=== PATIENT | female | born 1975 | race Caucasian/White ===

== ENCOUNTER 2019-12-22 10:36 | Outpatient (REF) | payer MEDICAID, SELFPAY ==
[2019-12-22 20:37] LABS: Calculated LDL 123 mg/dL (<100); Cholesterol 224 mg/dL (<200); HDL Cholesterol 50 mg/dL (40-60); Triglyceride 255 mg/dL (<150)
== END 2019-12-22 10:56 ==
LOC: NCHCN 10:36
PROVIDERS: PCP Nurse Practitioner Family; Visit Provider Nurse Practitioner Family
DX: R73.03 Prediabetes (principal); E06.3 Autoimmune thyroiditis; I10 Essential (primary) hypertension
CPT/HCPCS: 80061; 83036; 84443

== ENCOUNTER 2020-01-16 13:45 | Outpatient (REF) | payer MEDICAID, SELFPAY ==
--- NOTE | 2020-01-16 11:15 | PAPFT_PTH ---
PATIENT: Diane Wilson LOC: [facility] U#:[id number] AGE/SX: 44/F ROOM: RE01/16/[address]: Darline Salazar : 1975 BED: DIS: 01/16/2020 SPEC #: [id number] RECD: 01/17/20 12:36 STATUS: ERNIE RERain #: [id number] JHOANA: 01/16/20 11:[address]: Darline Salazar DEPT: [facility] Cytology RECD BY: Trinity Hudson Tissues: 1 - CX/ENDOCX FOR PAP SMEARS Procedures: PAP THIN PREP/UVM Screening Comments: [id number]
== END 2020-01-16 14:05 ==
LOC: NCHCN 13:45
PROVIDERS: PCP Nurse Practitioner Family; Visit Provider Nurse Practitioner Family
DX: Z12.4 Encounter for screening for malignant neoplasm of cervix (principal)
CPT/HCPCS: 88142

== ENCOUNTER 2020-01-18 11:21 | Outpatient (CLI) | payer MEDICAID, SELFPAY ==
--- NOTE | 2020-01-18 10:45 | DI.RAD_ITS ---
EXAM: XR KNEE LT 2V AP,LAT CLINICAL HISTORY: knee pain. TECHNIQUE: 2D digital imaging was performed. COMPARISON: No exams were available for comparison FINDINGS: BONES: No acute fracture is present. No bony destructive lesion is seen. JOINTS: The knee is normally aligned. No joint effusion is seen. There is mild narrowing of the medi al femoral tibial joint space and mild to moderate periarticular spurring. There is mild spurring at the articular aspect of the patella. SOFT TISSUE: Normal. IMPRESSION: [id number] degenerative changes of the medial femoral tibial joint. DATA REPOSITORY: RADIATION DOSE DELIVERED:
== END 2020-01-18 11:41 ==
PROVIDERS: PCP Nurse Practitioner Family; Referring Provider Nurse Practitioner Family; Visit Provider Physician Assistant
DX: M25.562 Pain in left knee (principal); M17.12 Unilateral primary osteoarthritis, left knee
CPT/HCPCS: 73560

== ENCOUNTER 2020-02-08 01:20 | Outpatient (CLI) | payer MEDICAID, SELFPAY ==
--- NOTE | 2020-02-08 10:18 | DI.RAD_ITS ---
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 TECHNIQUE: 2D digital imaging was performed. COMPARISON: No exams were available for comparison FINDINGS: A plantar calcaneal spur is seen. There are mild degenerative changes of the talonavicular joint and tarsal metatarsal joints. MTP joints are unremarkable. There are no bony erosions. IMPRESSION: Heel spur and mild degenerative changes. DATA REPOSITORY: RADIATION DOSE DELIVERED:
== END 2020-02-08 01:40 ==
PROVIDERS: PCP Nurse Practitioner Family; Visit Provider Podiatrist Foot & Ankle Surgery
DX: M77.31 Calcaneal spur, right foot (principal); M19.071 Primary osteoarthritis, right ankle and foot
CPT/HCPCS: 73630

== ENCOUNTER 2020-02-16 14:00 | Outpatient (REF) | payer MEDICAID, SELFPAY ==
[2020-02-16 20:23] LABS: TSH 0.66 uIU/mL (0.36-3.74)
[2020-02-16 20:34] LABS: Vitamin D 25 Total 26.8 ng/ml (30-100)
== END 2020-02-16 14:20 ==
LOC: NCHCN 14:00
PROVIDERS: PCP Nurse Practitioner Family; Visit Provider Nurse Practitioner Family
DX: E55.9 Vitamin D deficiency, unspecified (principal); E03.9 Hypothyroidism, unspecified
CPT/HCPCS: 82306; 84443

== ENCOUNTER 2020-05-14 14:18 | Outpatient (REF) | payer MEDICAID, SELFPAY ==
[2020-05-14 20:13] LABS: ESR 71 mm/hr (0-20)
== END 2020-05-14 14:38 ==
LOC: NCHCN 14:18
PROVIDERS: PCP Nurse Practitioner Family; Visit Provider Nurse Practitioner Family
DX: G89.29 Other chronic pain (principal)
CPT/HCPCS: 85652; 86140

== ENCOUNTER 2020-06-15 14:16 | Outpatient (REF) | payer MEDICAID, SELFPAY ==
[2020-06-15 20:05] LABS: HCT 46.4 % (36.0-46.0); HGB 14.5 g/dL (11.2-15.7); MCH 28.2 pg (27.0-33.0); MCHC 31.3 % (32.0-36.0); MCV 90.1 fL (80-95); MPV 10.9 fL (8.0-11.0); Platelet Count 407 10^3/uL (130-400); RBC 5.15 10^6/uL (3.93-5.22); RDW 14.6 % (11.7-14.6); RDW-SD 48.7 fL; WBC 13.48 10^3/uL (4.4-10.8)
[2020-06-15 20:25] LABS: Anion Gap 9.6 mmol/L (3-11); BUN 20 mg/dL (7-18); CO2 27.4 mmol/L (21.0-32.0); CREATININE 0.81 mg/dL (0.55-1.02); Calcium 9.8 mg/dL (8.5-10.1); Chloride 99 mmol/L (98-107); Glucose 135 mg/dL (74-106); Potassium 5.2 mmol/L (3.5-5.1); Sodium 136 mmol/L (136-145)
[2020-06-21 14:59] LABS: ANA Interpretation 0.2 U (Negative)
[2020-06-21 15:00] LABS: Anaplasma phagocytophilum Negative (Negative); Babesia divergens/MO-1 Negative (Negative); Babesia duncani Negative (Negative); Babesia microti Negative (Negative); Ehrlichia chaffeensis Negative (Negative); Ehrlichia ewingii/canis Negative (Negative); Ehrlichia muris eauclairensis Negative (Negative); Lyme Ab w Rflx to Lyme Confirm Negative (Negative); Rheumatoid Factor <15 IU/mL (<15)
[2020-06-21 15:01] LABS: B. miyamotoi PCR Negative (Negative)
== END 2020-06-15 14:36 ==
LOC: NCHCN 14:16
PROVIDERS: PCP Nurse Practitioner Family; Visit Provider Nurse Practitioner Family
DX: R53.83 Other fatigue (principal); G89.29 Other chronic pain
CPT/HCPCS: 80048; 85027; 87798; 86038; 86431; 86618

== ENCOUNTER 2021-06-11 00:49 | Outpatient (CLI) | payer MEDICAID, SELFPAY ==
--- NOTE | 2021-06-11 08:27 | DI.MAMMO_ITS ---
Exam(s) MAMMO SCREENING EXAM: MAMMO SCREENING CLINICAL HISTORY: SCREENING, FORMERLY [facility], 1928–1983,Z00.00 TECHNIQUE: Mammograms were interpreted according to the usual protocol including computer analysis w [employer] CAD system, tomosynthesis and C-view imaging. COMPARISON: 2018 and 2019 from [facility] [place] [facility] in [place], [place] FINDINGS: The breasts are composed of mainly fatty density , Breast Density category A. No suspicious masses or suspicious microcalcifications are seen. No skin thickening or abnormal axillary lymph nodes are seen. There has been no significant change from prior exams. IMPRESSION: BI-RADS Category 1, Negative mammogram Yearly screening mammography is recommended. Breast Density - Category A, fatty density. A negative radiographic report should not delay biopsy if a dominant or clinically suspicious mass is present. Up to ten percent of cancers are not identified on mammography. A negative report may reinforce clinical impression. Adenosis and dense breasts may obscure an underlying neoplasm. False positive reports average 6 to 10%. Patient will receive a letter notifying them of these results.
== END 2021-06-11 01:09 ==
PROVIDERS: PCP Nurse Practitioner Family; Visit Provider Nurse Practitioner Family
DX: Z12.31 Encounter for screening mammogram for malignant neoplasm of breast (principal)
CPT/HCPCS: 77063; 77067

== ENCOUNTER 2021-08-20 15:24 | Outpatient (REF) | payer MEDICAID, SELFPAY ==
[2021-08-20 14:17] LABS: HCT 41.9 % (36.0-46.0); HGB 13.2 g/dL (11.2-15.7); MCH 28.7 pg (27.0-33.0); MCHC 31.5 % (32.0-36.0); MCV 91.1 fL (80-95); MPV 10.6 fL (8.0-11.0); Platelet Count 374 10^3/uL (130-400); RDW 14.4 % (11.7-14.6); RDW-SD 48.2 fL; WBC 7.42 10^3/uL (4.4-10.8)
[2021-08-20 14:20] LABS: ESR 38 mm/hr (0-20)
[2021-08-20 14:37] LABS: ALT 44 U/L (14-59); AST 26 U/L (15-37); Albumin 3.6 g/dL (3.4-5.0); Alkaline Phosphatase 142 U/L (46-116); Anion Gap 7.9 mmol/L (3-11); BUN 14 mg/dL (7-18); Bilirubin, Total 0.2 mg/dL (0.2-1.0); C-Reactive Protein 1.56 mg/dL (0.0-0.3); CO2 29.1 mmol/L (21.0-32.0); CREATININE 0.8 mg/dL (0.55-1.02); Calcium 9.3 mg/dL (8.5-10.1); Chloride 102 mmol/L (98-107); Glucose 114 mg/dL (74-106); Potassium 4.3 mmol/L (3.5-5.1); Sodium 139 mmol/L (136-145); TSH (W/Ref FT4) 0.76 uIU/mL (0.36-3.74); Total Protein 7.9 g/dL (6.4-8.2)
[2021-08-20 15:04] LABS: Ferritin 51 ng/mL (8-252)
[2021-08-21 11:03] LABS: Lyme Ab w Rflx to Lyme Confirm Negative (Negative)
[2021-08-21 14:36] LABS: ANA Interpretation Negative (Negative)
[2021-08-23 01:17] LABS: Anaplasma phagocytophilum Negative (Negative); B. miyamotoi PCR Negative (Negative); Babesia divergens/MO-1 Negative (Negative); Babesia duncani Negative (Negative); Babesia microti Negative (Negative); Ehrlichia chaffeensis Negative (Negative); Ehrlichia ewingii/canis Negative (Negative); Ehrlichia muris eauclairensis Negative (Negative)
== END 2021-08-20 15:25 | disposition home or self-care (01) ==
LOC: NCHCN 15:24
PROVIDERS: PCP Nurse Practitioner Family; Visit Provider Family Medicine
DX: I10 Essential (primary) hypertension (principal); G47.00 Insomnia, unspecified; R79.82 Elevated C-reactive protein (CRP); R70.0 Elevated erythrocyte sedimentation rate; G25.81 Restless legs syndrome
CPT/HCPCS: 80053; 85027; 85652; 87798; 82728; 84443; 86038; 86140; 86618

== ENCOUNTER 2021-12-14 15:56 | Emergency (ER) | payer MEDICAID, SELFPAY ==
[2021-12-14 16:07] VITALS: BP 139/93; PULSE 124; RESP 18; TEMP 36.3; O2SAT 96
--- NOTE | 2021-12-14 17:02 | W.ED.GENAD ---
Discharge Plan Disposition Patient Disposition: HOME Condition: Stable Discharge Details Clinical Impression: COVID-19 Primary Care Provider: Darline Salazar ED Provider: Jenna Moscoso Home Meds and New Rx's Prescriptions: New Paxlovid (EUA) 150 mg x 2- 100 mg tablet See Rx Instructions .ROUTE .COMPLEX Qty: 30 0RF Rx Instructions: take TWO 150 mg tablets of nirmatrelvir with ONE 100 mg tablet of ritonavir twice daily for 5 days Paxlovid (EUA) 150 mg x 2- 100 mg tablet See Rx Instructions .ROUTE .COMPLEX Qty: 30 0RF Rx Instructions: take TWO 150 mg tablets of nirmatrelvir with ONE 100 mg tablet of ritonavir twice daily for 5 days No Action hydrocodone-acetaminophen [Vicodin HP] 10-300 mg tablet 1 tab PO Q6H PRN meloxicam 15 mg tablet 15 mg PO DAILY cyclobenzaprine 10 mg tablet 10 mg PO HS famotidine 20 mg tablet 20 mg PO DAILY levothyroxine 175 mcg capsule 175 mcg PO DAILY lisinopril 40 mg tablet 40 mg PO DAILY calcium carbonate-vitamin D3 600 mg-10 mcg (400 unit) tablet 1 tab PO DAILY Label Comments: TAKE ONE TABLET BY MOUTH THREE TIMES A DAY hydrochlorothiazide 12.5 mg tablet 1 tab PO Label Comments: TAKE 1 TABLET BY MOUTH EVERY DAY Discharge Instructions Instructions: COVID-19 (Coronavirus Disease 2019) (ED) Additional Instructions: Continue to quarantine as per the CDC guidelines 5 to 10 days. Continue to wear mask. Take the medications as directed twice daily for the next 5 days. Use [id number] supplements and taking vitamin with zinc, vitamin C vitamin D3. Follow up with primary care provider in 3-5 days. Return to ED sooner if any worsening or concerns. Increase oral fluids. Please take Tylenol or Ibuprofen with food every 4-6 hours as needed for pain and swelling. Return to the ER for O2 sat below 90%. Stand Alone Forms: Work Release Referrals: Darline Salazar [Primary Care Provider] - 1 week Medical Decision Making 46-year-old female presents to the ER chief complaint cough, fever, headache and testing positive for COVID earlier this afternoon. She is requesting to have the antiviral therapy. She does qualify due to obesity and history of asthma. She also does have hypertension and GERD. Denies any heart problems or diabetes does not take any cholesterol medication no known kidney problems that she knows of. CMP ordered which is largely unremarkable. BUN/creatinine within normal limits creatinine slightly elevated at 1.3 GFR is 43.90. Patient prescribed Paxlovid and instructed to follow-up with PCP. Discussed quarantine procedures verbalized understanding. Prescription was sent to the pharmacy on file. This text was generated using [employer] dictation system, please disregard any oddities of phrase or misspellings. HPI General Mode of arrival: ambulatory. Date/Time Provider Initiated Documentation: 12/14/21 16:15. Limitations to Documentation: no limitations. Information obtained by: patient and RN notes reviewed. HPI Narrative: 46-year-old female presents to the ER chief complaint cough, fever, headache and testing positive for COVID earlier this afternoon. She is requesting to have the antiviral therapy. She does qualify due to obesity and history of asthma. She also does have hypertension and GERD. Denies any heart problems or diabetes does not take any cholesterol medication no known kidney problems that she knows of. Related Data Home Medications Medication Instructions Recorded Confirmed cyclobenzaprine 10 mg tablet 10 mg PO HS 01/18/20 12/14/21 famotidine 20 mg tablet 20 mg PO DAILY 01/18/20 12/14/21 hydrocodone 10 mg-acetaminophen 1 tab PO Q6H PRN 01/18/20 12/14/21 300 mg tablet (Vicodin HP) levothyroxine 175 mcg capsule 175 mcg PO DAILY 01/18/20 12/14/21 lisinopril 40 mg tablet 40 mg PO DAILY 01/18/20 12/14/21 meloxicam 15 mg tablet 15 mg PO DAILY 01/18/20 12/14/21 calcium carbonate 600 mg-vitamin 1 tab PO DAILY 12/14/21 12/14/21 D3 10 mcg (400 unit) tablet hydrochlorothiazide 12.5 mg tablet 1 tab PO 12/14/21 nirmatrelvir 300 mg (150 mg x See Rx Instructions PO .COMPLEX 12/14/21 2)-ritonavir 100 mg tablet (EUA) #30 tabs (Paxlovid 300 mg () nirmatrelvir 300 mg (150 mg x See Rx Instructions PO .COMPLEX 12/14/21 2)-ritonavir 100 mg tablet (EUA) #30 tabs (Paxlovid 300 mg () Previous Rx's Medication Instructions Recorded nirmatrelvir 300 mg (150 mg x See Rx Instructions PO .COMPLEX 12/14/21 2)-ritonavir 100 mg tablet (EUA) #30 tabs (Paxlovid 300 mg () nirmatrelvir 300 mg (150 mg x See Rx Instructions PO .COMPLEX 12/14/21 2)-ritonavir 100 mg tablet (EUA) #30 tabs (Paxlovid 300 mg () Allergies Allergy/AdvReac Type Severity Reaction Status Date / Time No Known Allergies Allergy Verified 12/14/21 17:03 General Stated Complaint: RespSymp AGUSTÍN: 4 Review of Systems All systems reviewed & are unremarkable except as noted in HPI and below Constitutional Constitutional: Reports as per HPI, Reports body ache(s) and Reports headache(s) ENT Ears, Nose, Mouth, and Throat: Reports headache(s) Respiratory Respiratory: Reports cough Neurologic Neurologic: Reports headache(s) PFSH All Active Problems (Updated 12/14/21 @ 17:28 by Jenna Moscoso) COVID-19 (Acute) Tear of medial meniscus of left knee (Acute) Social History Smoking/Tobacco Use Status: Never Smoking risk assessment performed?: Yes Alcohol Intake: never Substance use type: does not use Current gender identity: female Exam Narrative Exam Narrative: Constitutional: Alert and oriented x3. Appears stated age. Obese body habitus. Head: Normocephalic, no trauma. Eyes: Pupils PERRL, Red reflex noted, EOM's intact. Eyelids symmetrical without lesions, discharge, or swelling. ENT: Bilateral TM's WNL, External ear normal to inspection, no mastoid TTP, swelling, or erythema, Nasal turbinates WNL, no nasal discharge. Normal dentition, Posterior pharynx WNL, no exudate. Chest: RRR, Normal S1, S2, distal pulses intact. Resp: Lungs clear to auscultation bilaterally, no wheezes, rales, or rhonchi. Abdomen: Soft, non-distended, Normoactive bowel sounds all 4 quads. Musculoskeletal: Normal gait, 5/5 strength to all four extremities. Skin: No suspicious rashes or lesions. Capillary refill less than 2 sec. Neurologic: Cranial nerves II-XII intact. Alert and oriented x 3. Motor: No deficits noted. Sensory: Intact bilaterally all 4 extremities. Hematologic/Lymphatic: No ecchymosis, no lymphadenopathy. Course Vital Signs Vital signs: Vital Signs Temperature 36.3 C L 12/14/21 16:07 Pulse 124 H 12/14/21 16:07 Respiratory Rate 18 12/14/21 16:07 Blood Pressure 139/93 H 12/14/21 16:07 Pulse Oximetry 96 12/14/21 16:07 Temperature 36.3 C L 12/14/21 16:07 Temperature Source Skin 12/14/21 16:07 Pulse 124 H 12/14/21 16:07 Respiratory Rate 18 12/14/21 16:07 Respiratory Effort 12/14/21 16:57 Blood Pressure 139/93 H 12/14/21 16:07 Blood Pressure Position Sitting 12/14/21 16:07 Pulse Oximetry 96 12/14/21 16:07 Oxygen Delivery Method Room Air 12/14/21 16:07 Oxygen Flow Rate 0 12/14/21 16:07 Pain Level 3 12/14/21 16:07 Comment 12/14/21 16:07
[2021-12-14 17:22] LABS: ALT 48 U/L (14-59); AST 30 U/L (15-37); Albumin 3.7 g/dL (3.4-5.0); Alkaline Phosphatase 113 U/L (46-116); Anion Gap 8.3 mmol/L (3-11); BUN 18 mg/dL (7-18); Bilirubin, Total 0.2 mg/dL (0.2-1.0); CO2 27.7 mmol/L (21.0-32.0); CREATININE 1.3 mg/dL (0.55-1.02); Calcium 9.8 mg/dL (8.5-10.1); Chloride 102 mmol/L (98-107); Glucose 138 mg/dL (74-106); Potassium 4.1 mmol/L (3.5-5.1); Sodium 138 mmol/L (136-145); Total Protein 8.1 g/dL (6.4-8.2)
== END 2021-12-14 17:56 | disposition home or self-care (01) ==
PROVIDERS: Emergency Provider Registered Nurse Emergency; PCP Nurse Practitioner Family
DX: U07.1 COVID-19 (principal)
CPT/HCPCS: 80053; 99283

== ENCOUNTER 2022-01-03 16:26 | Outpatient (REF) | payer MEDICAID, SELFPAY ==
[2022-01-03 16:06] LABS: Ferritin 34 ng/mL (8-252); Vitamin B12 888 pg/mL (193-986)
[2022-01-03 16:42] LABS: Folate > 20.0 ng/mL (8.6-20.0)
[2022-01-06 05:40] LABS: Vitamin D 25 Total 35.3 ng/mL (30-100)
== END 2022-01-03 16:27 | disposition home or self-care (01) ==
LOC: NCHCN 16:26
PROVIDERS: PCP Nurse Practitioner Family; Visit Provider Nurse Practitioner Family
DX: G25.81 Restless legs syndrome (principal); G89.29 Other chronic pain
CPT/HCPCS: 82306; 82607; 82728; 82746; 83735

== ENCOUNTER 2022-01-07 02:10 | Outpatient (CLI) | payer OTHER, SELFPAY ==
[2022-01-07] MEDS: Albuterol HFA 18 GM 200 PUFF INH IH (10:13)
[2022-01-07] MEDS: Inhaler, Assist Device 1 EACH MC (10:14)
--- NOTE | 2022-01-07 11:22 | W.PFT ---
Date of service: 01/07/22 Time of Service: 09:23 Pulmonary Function Test Result Requesting Provider Caron Balderas Indications: Disability Interpretation Spirometry: There is no airflow limitation. There is no significant bronchodilator response. Impression Normal spirometry Clinical Correlation therefore is recommended.
== END 2022-01-07 02:11 | disposition home or self-care (01) ==
PROVIDERS: PCP Nurse Practitioner Family; Visit Provider Pediatrics Pediatric Rheumatology
DX: J45.909 Unspecified asthma, uncomplicated (principal); Z02.71 Encounter for disability determination
CPT/HCPCS: 94060

== ENCOUNTER 2022-08-18 14:10 | Outpatient (REF) | payer MEDICAID, SELFPAY ==
[2022-08-18 16:56] LABS: Anion Gap 8.1 mmol/L (3-11); BUN 19 mg/dL (7-18); CO2 30.9 mmol/L (21.0-32.0); CREATININE 1.2 mg/dL (0.55-1.02); Calcium 9.2 mg/dL (8.5-10.1); Calculated LDL 125 mg/dL (<100); Chloride 101 mmol/L (98-107); Cholesterol 228 mg/dL (<200); Estimated GFR 56.19 (mL/min/1.73m2); Glucose 111 mg/dL (74-106); HDL Cholesterol 53 mg/dL (40-60); Potassium 3.8 mmol/L (3.5-5.1); Sodium 140 mmol/L (136-145); Triglyceride 252 mg/dL (<150)
[2022-08-19 19:14] LABS: Estimated Average Glucose 134 mg/dL; Hemoglobin A1C 6.3 % (<5.7)
== END 2022-08-18 14:11 | disposition home or self-care (01) ==
LOC: NCHCN 14:10
PROVIDERS: PCP Nurse Practitioner Family; Visit Provider Nurse Practitioner Family
DX: E78.5 Hyperlipidemia, unspecified (principal); I10 Essential (primary) hypertension; R73.03 Prediabetes; Z00.00 Encounter for general adult medical examination without abnormal findings
CPT/HCPCS: 80048; 80061; 83036

== ENCOUNTER 2022-09-15 11:58 | Outpatient (REF) | payer MEDICAID, SELFPAY ==
[2022-09-15 16:34] LABS: TSH 0.21 uIU/mL (0.36-3.74)
== END 2022-09-15 11:59 | disposition home or self-care (01) ==
LOC: NCHCN 11:58
PROVIDERS: PCP Nurse Practitioner Family; Visit Provider Nurse Practitioner Family
DX: E03.9 Hypothyroidism, unspecified (principal)
CPT/HCPCS: 84443

== ENCOUNTER 2022-12-12 14:54 | Outpatient (REF) | payer MEDICAID, SELFPAY ==
[2022-12-12 15:32] LABS: ALT 59 U/L (14-59); AST 39 U/L (15-37); Albumin 3.4 g/dL (3.4-5.0); Alkaline Phosphatase 118 U/L (46-116); Anion Gap 11.7 mmol/L (3-11); BUN 33 mg/dL (7-18); Bilirubin, Total 0.1 mg/dL (0.2-1.0); CO2 25.3 mmol/L (21.0-32.0); CREATININE 1.7 mg/dL (0.55-1.02); Calcium 10.2 mg/dL (8.5-10.1); Chloride 102 mmol/L (98-107); Estimated GFR 36.76 (mL/min/1.73m2); Glucose 109 mg/dL (74-106); Magnesium 1.8 mg/dL (1.8-2.4); Potassium 4.1 mmol/L (3.5-5.1); Sodium 139 mmol/L (136-145); Total Protein 8.5 g/dL (6.4-8.2); Vitamin B12 1675 pg/mL (193-986)
[2022-12-12 19:25] LABS: Hemoglobin A1C 6.1 % (<5.7)
== END 2022-12-12 14:55 | disposition home or self-care (01) ==
LOC: NCHCN 14:54
PROVIDERS: PCP Nurse Practitioner Family; Visit Provider Nurse Practitioner Family
DX: E03.9 Hypothyroidism, unspecified (principal); R73.03 Prediabetes; R79.89 Other specified abnormal findings of blood chemistry; I10 Essential (primary) hypertension
CPT/HCPCS: 80053; 82607; 83036; 83735; 84443

== ENCOUNTER 2022-12-26 01:46 | Outpatient (CLI) | payer MEDICAID, SELFPAY ==
[2022-12-26 10:18] LABS: BUN 21 mg/dL (7-18); CREATININE 1.2 mg/dL (0.55-1.02); Calcium 9.4 mg/dL (8.5-10.1); Chloride 99 mmol/L (98-107); Estimated GFR 55.84 (mL/min/1.73m2); Glucose 118 mg/dL (74-106); Potassium 3.3 mmol/L (3.5-5.1); Sodium 136 mmol/L (136-145)
== END 2022-12-26 01:47 | disposition home or self-care (01) ==
LOC: LBO 01:46
PROVIDERS: PCP Nurse Practitioner Family; Visit Provider Nurse Practitioner Family
DX: R94.4 Abnormal results of kidney function studies (principal)
CPT/HCPCS: 36415; 80048

== ENCOUNTER 2022-12-26 01:51 | Outpatient (CLI) | payer MEDICAID, SELFPAY ==
[2022-12-26] MEDS: Albuterol HFA 18 GM 200 PUFF INH IH (11:43)
[2022-12-26] MEDS: Inhaler, Assist Device 1 EACH MC (11:43)
[2022-12-26] MEDS: Methacholine 100 MG VIAL IH (11:43)
--- NOTE | 2022-12-26 13:09 | PFT_ITS ---
Date of service: 12/26/22 Time of Service: 10:00 Pulmonary Function Test Result Indications: Chronic cough Interpretation Spirometry: There is no airflow limitation. There was a 30% decreased in FEV1% with adminis tration of 0.5mg/mL methacholine. Lung Volumes: There is no hyperinflation but there is air trapping. Diffusion Capacity: Normal diffusion. Airway Pressure: Normal airways resistance. Impression No airflow obstruction with some air trapping and a normal diffusion. There is a very significantly positive methacholine challenge. These results are consistent with asthma. Note: When compared to 01/07/22, the FEV1 and FVC are decreased. Clinical Correlation therefore is recommended.
== END 2022-12-26 01:52 | disposition home or self-care (01) ==
LOC: RT 01:51
PROVIDERS: PCP Nurse Practitioner Family; Visit Provider Physician Assistant Surgical
DX: R05.3 Chronic cough (principal); R06.00 Dyspnea, unspecified; J45.901 Unspecified asthma with (acute) exacerbation
CPT/HCPCS: 94060; 94070; 94726; 94729; 94010; J7674

== ENCOUNTER 2023-03-13 10:40 | Outpatient (REF) | payer MEDICAID, SELFPAY ==
[2023-03-13 15:46] LABS: ALT 55 U/L (14-59); AST 36 U/L (15-37); Albumin 3.4 g/dL (3.4-5.0); Alkaline Phosphatase 120 U/L (46-116); Anion Gap 9.7 mmol/L (3-11); BUN 20 mg/dL (7-18); Bilirubin, Total 0.4 mg/dL (0.2-1.0); CO2 28.3 mmol/L (21.0-32.0); CREATININE 1.2 mg/dL (0.55-1.02); Calcium 10.2 mg/dL (8.5-10.1); Chloride 100 mmol/L (98-107); Estimated GFR 55.84 (mL/min/1.73m2); Glucose 109 mg/dL (74-106); Potassium 3.7 mmol/L (3.5-5.1); Sodium 138 mmol/L (136-145); TSH 0.46 uIU/mL (0.36-3.74); Total Protein 8.2 g/dL (6.4-8.2)
[2023-03-13 16:09] LABS: Hemoglobin A1C 6.1 % (<5.7)
[2023-03-13 16:14] LABS: Vitamin D 25 Total 36.3 ng/mL (30-100)
== END 2023-03-13 10:41 | disposition home or self-care (01) ==
LOC: NCHCN 10:40
PROVIDERS: PCP Nurse Practitioner Family; Visit Provider Nurse Practitioner Family
DX: E03.9 Hypothyroidism, unspecified (principal); R73.03 Prediabetes; E55.9 Vitamin D deficiency, unspecified
CPT/HCPCS: 80053; 82306; 83036; 84443

== ENCOUNTER 2023-04-10 10:28 | Outpatient (REF) | payer MEDICAID, SELFPAY ==
[2023-04-10 16:58] LABS: Anion Gap 8.4 mmol/L (3-11); BUN 29 mg/dL (7-18); CO2 28.6 mmol/L (21.0-32.0); CREATININE 1.6 mg/dL (0.55-1.02); Calcium 9.5 mg/dL (8.5-10.1); Chloride 100 mmol/L (98-107); Estimated GFR 39.54 (mL/min/1.73m2); Glucose 109 mg/dL (74-106); Potassium 4.5 mmol/L (3.5-5.1); Sodium 137 mmol/L (136-145)
== END 2023-04-10 10:29 | disposition home or self-care (01) ==
LOC: NCHCN 10:28
PROVIDERS: PCP Nurse Practitioner Family; Visit Provider Nurse Practitioner Family
DX: R94.4 Abnormal results of kidney function studies (principal); I10 Essential (primary) hypertension; R79.89 Other specified abnormal findings of blood chemistry
CPT/HCPCS: 80048

== ENCOUNTER → 2023-04-16 01:22 | Outpatient (CLI) | payer MEDICAID, SELFPAY ==
--- NOTE | 2023-04-16 08:40 | DI.RAD_ITS ---
Exam(s) XR FOOT LT COMPLETE XR ANKLE LT COMPLETE EXAM: XR FOOT LT COMPLETE CLINICAL HISTORY: CHRONIC FOOT PAIN,G89.29. TECHNIQUE: 2D digital imaging was performed. Three views. COMPARISON: CR XR ANKLE LT COMPLETE from 04/16/2023 FINDINGS: BONES: No acute fracture is present. No bony destructive lesion is seen. Heel spur. JOINTS: No dislocation present. Severe narrowing of the tibiotalar joint space. Osteochondral defe ct of the lateral talar dome. Mild degenerative changes 1st MTP joint. SOFT TISSUE: Normal. IMPRESSION: Advanced degenerative changes tibiotalar joint and osteochondral defect of medial talar dome. DATA REPOSITORY: RADIATION DOSE DELIVERED:
== END ==
PROVIDERS: PCP Nurse Practitioner Family; Visit Provider Nurse Practitioner Family
DX: M79.672 Pain in left foot (principal); M93.272 Osteochondritis dissecans, left ankle and joints of left foot
CPT/HCPCS: 73610; 73630

== ENCOUNTER 2023-05-05 11:40 | Outpatient (REF) | payer MEDICAID, SELFPAY ==
[2023-05-05 12:54] LABS: Abs Immature Grans 0.03 10^3/uL (0.0-0.06); Absolute Basophil Count 0.06 10^3/uL (0.0-0.2); Absolute Eosinophil Count 0.39 10^3/uL (0.0-0.7); Absolute Lymphocyte Count 2.27 10^3/uL (1.2-3.4); Absolute Monocyte Count 0.51 10^3/uL (0.1-0.8); Absolute Neutrophil Count 5.24 10^3/uL (1.2-6.7); Basophils % 0.7; Eosinophils % 4.6; HCT 39.4 % (36.0-46.0); HGB 12.3 g/dL (11.2-15.7); Immature Grans % 0.4; Lymphocytes % 26.7; MCH 28.7 pg (27.0-33.0); MCHC 31.2 % (32.0-36.0); MCV 92 fL (80-95); Neutrophils % 61.6; Platelet Count 390 10^3/uL (130-400); RBC 4.29 10^6/uL (3.93-5.22); RDW 14.6 % (11.7-14.6); RDW-SD 48.8 fL
[2023-05-06 12:27] LABS: IgE 168 IU/mL (<158)
[2023-05-06 21:49] LABS: Aspergillus Fumigatus IgE <0.10 kU/L (<0.70); Aspergillus Niger, IgE <0.10 kU/L (<0.70); Bermuda Grass IgE <0.10 kU/L (<0.70); Candida Albicans (Monilia),IgE <0.10 kU/L (<0.70); Cat Epithelium IgE 1.24 kU/L (<0.70); Cockroach IgE 7.47 kU/L (<0.70); D Farinae IgE 0.57 kU/L (<0.70); Dog Dander IgE 0.59 kU/L (<0.70); Epicoccum purpurascens IgE <0.10 kU/L (<0.70); Giant Ragweed IgE <0.10 kU/L (<0.70); Goldenrod IgE <0.10 kU/L (<0.70); Mouse Serum Protein IgE <0.10 kU/L (<0.70); Silver Birch IgE <0.10 kU/L (<0.70); Spruce, IgE <0.10 kU/L (<0.70)
[2023-05-06 21:53] LABS: False Ragweed, IgE <0.10 kU/L (<0.70)
[2023-05-11 15:34] LABS: CLASS 0; Cedar Red IgE <0.10 kU/L (<0.35)
== END 2023-05-05 11:41 | disposition home or self-care (01) ==
LOC: LBN 11:40
PROVIDERS: PCP Nurse Practitioner Family; Referring Provider Physician Assistant Surgical; Visit Provider Physician Assistant Surgical
DX: J45.909 Unspecified asthma, uncomplicated (principal)
CPT/HCPCS: 86003; 82785; 84307; 85025

== ENCOUNTER 2023-05-11 13:32 | Outpatient (REF) | payer MEDICAID, SELFPAY ==
[2023-05-11 16:30] LABS: Anion Gap 8.2 mmol/L (3-11); BUN 21 mg/dL (7-18); CO2 28.8 mmol/L (21.0-32.0); CREATININE 1.1 mg/dL (0.55-1.02); Calcium 9.7 mg/dL (8.5-10.1); Chloride 104 mmol/L (98-107); Estimated GFR 61.98 (mL/min/1.73m2); Glucose 95 mg/dL (74-106); Sodium 141 mmol/L (136-145)
== END 2023-05-11 13:33 | disposition home or self-care (01) ==
LOC: NCHCN 13:32
PROVIDERS: PCP Nurse Practitioner Family; Visit Provider Nurse Practitioner Family
DX: R79.89 Other specified abnormal findings of blood chemistry (principal); R94.4 Abnormal results of kidney function studies; I10 Essential (primary) hypertension
CPT/HCPCS: 80048

== ENCOUNTER 2023-05-28 09:26 | Outpatient (CLI) | payer MEDICAID, SELFPAY ==
--- NOTE | 2023-05-28 09:00 | DI.RAD_ITS ---
Exam(s) XR KNEE RT 3V AP,LAT,JENN EXAM: XR KNEE RT 3V AP,LAT,JENN CLINICAL HISTORY: right knee pain. TECHNIQUE: 2D digital imaging was performed. Three views. COMPARISON: CR XR KNEE LT 2V AP,LAT from 01/18/2020 FINDINGS: BONES: No acute fracture is present. No bony destructive lesion is seen. JOINTS: The knee is normally aligned. No joint effusion is seen. The joint spaces are maintained. SOFT TISSUE: Normal. IMPRESSION: Unremarkable radiographs of the right knee. DATA REPOSITORY: RADIATION DOSE DELIVERED:
== END 2023-05-28 09:27 | disposition home or self-care (01) ==
LOC: DIORS 09:26
PROVIDERS: PCP Nurse Practitioner Family; Visit Provider Physician Assistant
DX: M25.561 Pain in right knee (principal)
CPT/HCPCS: 73562

== ENCOUNTER 2023-06-01 15:56 | Outpatient (REF) | payer MEDICAID, SELFPAY ==
[2023-06-01 16:18] LABS: BUN 20 mg/dL (7-18); CREATININE 0.9 mg/dL (0.55-1.02); Calcium 9.9 mg/dL (8.5-10.1); Chloride 103 mmol/L (98-107); Estimated GFR 78.86 (mL/min/1.73m2); Glucose 105 mg/dL (74-106); Potassium 3.9 mmol/L (3.5-5.1); Sodium 138 mmol/L (136-145)
== END 2023-06-01 15:57 | disposition home or self-care (01) ==
LOC: NCHCN 15:56
PROVIDERS: PCP Nurse Practitioner Family; Visit Provider Nurse Practitioner Family
DX: K30 Functional dyspepsia (principal); R94.4 Abnormal results of kidney function studies; R79.89 Other specified abnormal findings of blood chemistry
CPT/HCPCS: 80048; 83735

== ENCOUNTER 2023-06-30 16:37 | Emergency (ER) | payer MEDICAID, SELFPAY ==
[2023-06-30 16:40] VITALS: BP 96/69; PULSE 123; RESP 20; TEMP 36.5; O2SAT 98
[2023-06-30] MEDS: Ondansetron 4 MG/2 ML VIAL IVP (17:06)
[2023-06-30] MEDS: Normal Saline 1,000 ML 1000 ML IV ×2 (17:06→18:35)
[2023-06-30 17:11] LABS: Lactate 1.7 mmol/L (0.6-1.4)
[2023-06-30 17:18] LABS: Abs Immature Grans 0.07 10^3/uL (0.0-0.06); Absolute Eosinophil Count 0.32 10^3/uL (0.0-0.7); Absolute Lymphocyte Count 3.07 10^3/uL (1.2-3.4); Absolute Monocyte Count 0.87 10^3/uL (0.1-0.8); Basophils % 0.4; Eosinophils % 2.3; HGB 14.8 g/dL (11.2-15.7); Immature Grans % 0.5; Lymphocytes % 21.8; MCH 28.3 pg (27.0-33.0); MCHC 32.2 % (32.0-36.0); MCV 88 fL (80-95); MPV 9.7 fL (8.0-11.0); Monocytes % 6.2; Neutrophils % 68.8; Platelet Count 520 10^3/uL (130-400); RBC 5.23 10^6/uL (3.93-5.22); RDW-SD 48.1 fL; WBC 14.07 10^3/uL (4.4-10.8)
[2023-06-30 17:19] LABS: Absolute Basophil Count 0.06 10^3/uL (0.0-0.2); Absolute Neutrophil Count 9.68 10^3/uL (1.2-6.7)
--- NOTE | 2023-06-30 17:20 | W.ED.GENAD ---
Discharge Plan Disposition Patient Disposition: Home Condition: Good Discharge Details Clinical Impression: Acute diarrhea Primary Care Provider: Darline Salazar ED Provider: Sarai Ortiz Home Meds and New Rx's Prescriptions: New ondansetron 4 mg tablet,disintegrating 4 mg PO Q8H PRNQty: 10 0RF No Action cyclobenzaprine 10 mg tablet 10 mg PO HS pantoprazole 40 mg tablet,delayed release (DR/EC) 40 mg PO DAILY cyanocobalamin (vitamin B-12) [Vitamin B-12] 100 mcg tablet 100 mcg PO BID budesonide-formoterol 160-4.5 mcg/actuation HFA aerosol inhaler 2 puff inhalation BID Qty: 10.2 6RF Spiriva Respimat 2.5 mcg/actuation mist 2 puff inhalation DAILY Qty: 4 6RF amlodipine 5 mg tablet 5 mg PO DAILY (DME) cpap supplies See Rx Instructions .Route .MEDSUPPLY Rx Instructions: mask and tubing multivitamin Tablet 1 tab PO DAILY ascorbate calcium (vitamin C) 500 mg tablet 500 mg PO DAILY (DME) Aerochamber MV Spacer See Rx Instructions .Route Rx Instructions: As directed (DME) cpap 0 .Route .MEDSUPPLY turmeric-turmeric root extract 450-50 mg capsule 1 cap PO DAILY magnesium oxide 500 mg capsule 500 mg PO DAILY triamcinolone acetonide 0.1 % ointment 1 applic topical BID PRN nystatin 100,000 unit/gram cream 1 applic topical BID albuterol sulfate 90 mcg/actuation HFA aerosol inhaler 2 puff inhalation .Q 4-6H PRN olmesartan 20 mg tablet 20 mg PO DAILY levothyroxine 150 mcg capsule 150 mcg PO DAILY Victoza 2-Paco 0.6 mg/0.1 mL (18 mg/3 mL) pen injector 0.6 mg subcut DAILY buspirone 15 mg tablet 15 mg PO BID pregabalin 25 mg capsule 25 mg PO BID benzonatate 100 mg capsule 100 mg PO TID PRN (Reason: cough) Qty: 90 3RF Nucala 100 mg/mL syringe 100 mg subcut Q4W Qty: 1 12RF calcium carbonate-vitamin D3 600 mg-10 mcg (400 unit) tablet 1 tab PO DAILY Patient Comments: TAKE ONE TABLET BY MOUTH THREE TIMES A DAY Discharge Instructions Instructions: Acute Diarrhea (ED) Additional Instructions: Zofran up to every 8 hours for nausea. Keep hydrated with electrolyte replacement drinks, like Gatorade. Call your primary care doctor tomorrow to schedule an appointment for before the end of the week to follow up on your visit; they may want to recheck your kidney function. Return to the emergency department for new or worsening symptoms including feeling lightheaded, vomiting, abdominal pain, decreased urine output, or if you have any other concerns. Referrals: Darline Salazar [Primary Care Provider] - Medical Decision Making 47yo F with hx HTN, HLD, GERD, LOLY, presenting for diarrhea for 3-4 days. Copious and watery at onset, minimal yesterday, increased today with 5-6 episodes of loose brown stool. No blood. No vomiting, does have assoicated nausea and mild crampy abdominal pain. BP 90's/60's on arrival and HR 120's, suspect volume down. Not overtly septic. Physical exam reassuring, abdomen non-tender; would not get CT imaging. Given zofran for nausea and 2L of IVF. Labs reviewed as below, CBC with slight leukocytosis to 14, no anemia, CMP with no significant electrolyte abnormalities though does have Cr of 2.1 (most recent prior december 2021 was 1.3). Lactic borderline at 1.7. Repeat BMP and lactic after completion of fluids improved, Cr 1.8, lactic 0.5. No stool in the ED. Repeat vital signs normal, no tachycardia, blood pressure improved. Abdomen remains nontender. Patient reports feeling much better and is requesting discharge home which is reasonable. Most likely viral gastroenteritis; low suspicion for sepsis, acute intrabdominal pathology, or bacterial infection. She was advised to followup with her PCP later this week. Discharged home; discharge instructions including return precautions were reviewed with patient who verablized understanding. Alll questions were answered and they are in full agreement with the plan. Lab Data Lab results reviewed: Yes I reviewed the patient's lab results. Labs: Laboratory Tests Range/Units 06/30/23 06/30/23 17:03 19:20 WBC (4.4-10.8) 10^3/uL 14.07 H RBC (3.93-5.22) 10^6/uL 5.23 H Hgb (11.2-15.7) g/dL 14.8 Hct (36.0-46.0) % 46.0 MCV (80-95) fL 88 MCH (27.0-33.0) pg 28.3 MCHC (32.0-36.0) % 32.2 RDW (11.7-14.6) % 15.0 H Plt Count (130-400) 10^3/uL 520 H MPV (8.0-11.0) fL 9.7 Immature Gran % 0.5 Neutrophils % 68.8 Lymphocytes % 21.8 Monocytes % 6.2 Eosinophils % 2.3 Basophils % 0.4 Nucleated RBC % (0.0-0.3) % 0.0 Absolute Neutrophils (1.2-6.7) 10^3/uL 9.68 H Absolute Lymphocytes (1.2-3.4) 10^3/uL 3.07 Absolute Monocytes (0.1-0.8) 10^3/uL 0.87 H Absolute Eosinophils (0.0-0.7) 10^3/uL 0.32 Absolute Basophils (0.0-0.2) 10^3/uL 0.06 VBG Lactate (0.6-1.4) mmol/L 1.7 H 0.5 L Sodium (136-145) mmol/L 137 139 Potassium (3.5-5.1) mmol/L 4.4 4.0 Chloride (98-107) mmol/L 101 105 Carbon Dioxide (21.0-32.0) mmol/L 22.8 23.8 Anion Gap (3-11) mmol/L 13.2 H 10.2 BUN (7-18) mg/dL 41 H 40 H Creatinine (0.55-1.02) mg/dL 2.1 H 1.8 H Est GFR (CKD-EPI 2020) (mL/min/1.73m2) 28.53 34.32 Glucose (74-106) mg/dL 125 H 107 H Calcium (8.5-10.1) mg/dL 10.4 H 9.1 Magnesium (1.8-2.4) mg/dL 1.8 Total Bilirubin (0.2-1.0) mg/dL 0.4 AST (15-37) U/L 41 H ALT (14-59) U/L 53 Alkaline Phosphatase (46-116) U/L 131 H Total Protein (6.4-8.2) g/dL 9.3 H Albumin (3.4-5.0) g/dL 3.9 TSH (0.36-3.74) uIU/mL 2.37 HPI General Mode of arrival: ambulatory. Date/Time Provider Initiated Documentation: 06/30/23 16:43. Limitations to Documentation: no limitations. Information obtained by: patient. HPI Narrative: 47yo F with hx HTN, HLD, GERD, LOLY, presenting for diarrhea for 3-4 days. Initially copious and water, slowed down yesterday and was feeling better, today again with 5-6 episodes of loose brown stool. Associated nausea, no vomiting. Diffuse mild crampy abdominal pain. No known sick contacts. She is otherwise in her usual state of health with no fevers, chills, rash, chest pain, shortness of breath, weakness, or other concerns. Related Data Home Medications Medication Instructions Recorded Confirmed cyclobenzaprine 10 mg tablet 10 mg PO HS 01/18/20 06/30/23 calcium carbonate 600 mg-vitamin 1 tab PO DAILY 12/14/21 06/30/23 D3 10 mcg (400 unit) tablet albuterol sulfate 90 mcg/actuation 2 puff inhalation .Q 4-6H PRN 09/26/22 06/30/23 aerosol inhaler ascorbate calcium (vitamin C) 500 500 mg PO DAILY 09/26/22 06/30/23 mg tablet cpap 09/26/22 05/28/23 cpap supplies 09/26/22 05/28/23 inhalational spacing device 09/26/22 05/28/23 (Aerochamber MV spacer) magnesium oxide 500 mg capsule 500 mg PO DAILY 09/26/22 06/30/23 multivitamin 1 tab PO DAILY 09/26/22 06/30/23 nystatin 100,000 unit/gram topical 1 applic topical BID 09/26/22 06/30/23 cream olmesartan 20 mg tablet 20 mg PO DAILY 09/26/22 06/30/23 triamcinolone acetonide 0.1 % 1 applic topical BID PRN 09/26/22 06/30/23 topical ointment turmeric 450 mg-turmeric root 1 cap PO DAILY 09/26/22 06/30/23 extract 50 mg capsule budesonide-formoterol HFA 160 2 puff inhalation BID #10.2 grams 12/11/22 06/30/23 mcg-4.5 mcg/actuation aerosol inhaler cyanocobalamin (vitamin B-12) 100 100 mcg PO BID 12/11/22 06/30/23 mcg tablet (Vitamin B-12) pantoprazole 40 mg tablet,delayed 40 mg PO DAILY 12/11/22 06/30/23 release tiotropium bromide 2.5 2 puff inhalation DAILY #4 grams 12/31/22 06/30/23 mcg/actuation mist for inhalation (Spiriva Respimat) buspirone 15 mg tablet 15 mg PO BID 04/09/23 06/30/23 levothyroxine 150 mcg capsule 150 mcg PO DAILY 04/09/23 06/30/23 liraglutide 0.6 mg/0.1 mL (18 mg/3 0.6 mg subcut DAILY 04/09/23 06/30/23 mL) subcutaneous pen injector (Friendsee 2-Paco) pregabalin 25 mg capsule 25 mg PO BID 04/09/23 06/30/23 benzonatate 100 mg capsule 100 mg PO TID PRN cough #90 caps 04/27/23 06/30/23 amlodipine 5 mg tablet 5 mg PO DAILY 05/28/23 06/30/23 mepolizumab 100 mg/mL subcutaneous 100 mg subcut Q4W #1 mL 06/03/23 06/30/23 syringe (Nucala) ondansetron 4 mg disintegrating 4 mg PO Q8H PRN #10 tabs 06/30/23 tablet Previous Rx's Medication Instructions Recorded budesonide-formoterol HFA 160 2 puff inhalation BID #10.2 grams 12/11/22 mcg-4.5 mcg/actuation aerosol inhaler tiotropium bromide 2.5 2 puff inhalation DAILY #4 grams 12/31/22 mcg/actuation mist for inhalation (Spiriva Respimat) benzonatate 100 mg capsule 100 mg PO TID PRN cough #90 caps 04/27/23 mepolizumab 100 mg/mL subcutaneous 100 mg subcut Q4W #1 mL 06/03/23 syringe (Nucala) ondansetron 4 mg disintegrating 4 mg PO Q8H PRN #10 tabs 06/30/23 tablet Allergies Allergy/AdvReac Type Severity Reaction Status Date / Time cigarette smoke Allergy Unknown Verified 05/28/23 08:40 cats Allergy Unknown Uncoded 05/28/23 08:40 dust Allergy Unknown Uncoded 05/28/23 08:40 seasonal Allergy Unknown Uncoded 05/28/23 08:40 General Stated Complaint: Nausea/Vomit/Diar AGUSTÍN: 3 Review of Systems Narrative: see HPI PFSH All Active Problems (Updated 06/30/23 @ 20:07 by Sarai Ortiz MD) Acute diarrhea (Acute) Arthritis of left ankle (Acute) Internal derangement of right knee (Acute) ADHD (Acute) Anxiety disorder (Acute) Binge eating disorder (Acute) Hypertensive disorder (Chronic) Fibromyalgia (Acute) GERD (gastroesophageal reflux disease) (Chronic) Carpal tunnel syndrome on left (Acute) Depression, major (Chronic) Asthma (Chronic) Obesity (Chronic) Obstructive sleep apnea (adult) (pediatric) (Acute) Osteoarthritis (Chronic) Chronic pain (Chronic) Prediabetes (Acute) Restless legs syndrome (Acute) Seasonal allergies (Acute) Tension headache (Acute) Vitamin D deficiency (Acute) Chronic foot pain (Acute) Dental caries (Acute) Hyperlipidemia (Acute) Unresolved grief (Acute) Hypothyroid (Chronic) Insomnia (Acute) Congenital pes planus (Acute) Plantar fasciitis, bilateral (Acute) Fatigue (Acute) Elevated sedimentation rate (Acute) Elevated C-reactive protein (Acute) Decreased hearing (Acute) Rash (Acute) Rectal bleeding (Acute) Corneal abrasion (Acute) Paresthesia of foot (Acute) Knee pain (Acute) Ear pain (Acute) Chronic cough (Acute) Dyspnea (Acute) COVID-19 (Acute) Tear of medial meniscus of left knee (Acute) Social History (Updated 09/26/22 @ 13:53 by Kacey Herrera) Smoking/Tobacco Use Status: Never Smoking risk assessment performed?: Yes Alcohol Intake: never Drug use: Never Substance use type: does not use Housing: house Current gender identity: female Do you feel safe at home: Yes Do you feel safe in your relationship?: Yes Exam Narrative Exam Narrative: General: Alert, well appearing, well nourished, in no acute distress. Head: Normocephalic, atraumatic Neck: Trachea midline, Neck supple. Cardiac: RRR, no murmurs appreciated Resp: No respiratory distress. CTAB. Abd: Soft, non-distended, nontender : No suprapubic tenderness. No CVA tenderness. Extremities: No deformities. No peripheral edema. Neurologic: GCS 15. Moves all extremities freely against gravity Course Vital Signs Vital signs: Vital Signs Temperature 36.5 C 06/30/23 16:40 Pulse 123 H 06/30/23 16:40 Respiratory Rate 20 06/30/23 16:40 Blood Pressure 96/69 L 06/30/23 16:40 Pulse Oximetry 98 06/30/23 16:40 Temperature 36.5 C 06/30/23 16:40 Temperature Source Temporal Artery Scan 06/30/23 16:40 Pulse 123 H 06/30/23 16:40 Respiratory Rate 20 06/30/23 16:40 Respiratory Effort Normal 06/30/23 16:43 Blood Pressure 96/69 L 06/30/23 16:40 Pulse Oximetry 98 06/30/23 16:40 Oxygen Delivery Method Room Air 06/30/23 16:40 Oxygen Flow Rate 0 06/30/23 16:40 Lab/Test Results Lab/Test Results: Laboratory Tests Range/Units 06/30/23 17:03 WBC (4.4-10.8) 10^3/uL 14.07 H RBC (3.93-5.22) 10^6/uL 5.23 H Hgb (11.2-15.7) g/dL 14.8 Hct (36.0-46.0) % 46.0 MCV (80-95) fL 88 MCH (27.0-33.0) pg 28.3 MCHC (32.0-36.0) % 32.2 RDW (11.7-14.6) % 15.0 H Plt Count (130-400) 10^3/uL 520 H MPV (8.0-11.0) fL 9.7 Immature Gran % 0.5 Neutrophils % 68.8 Lymphocytes % 21.8 Monocytes % 6.2 Eosinophils % 2.3 Basophils % 0.4 Nucleated RBC % (0.0-0.3) % 0.0 Absolute Neutrophils (1.2-6.7) 10^3/uL 9.68 H Absolute Lymphocytes (1.2-3.4) 10^3/uL 3.07 Absolute Monocytes (0.1-0.8) 10^3/uL 0.87 H Absolute Eosinophils (0.0-0.7) 10^3/uL 0.32 Absolute Basophils (0.0-0.2) 10^3/uL 0.06 VBG Lactate (0.6-1.4) mmol/L 1.7 H
[2023-06-30 17:38] LABS: ALT 53 U/L (14-59); AST 41 U/L (15-37); Albumin 3.9 g/dL (3.4-5.0); Alkaline Phosphatase 131 U/L (46-116); Anion Gap 13.2 mmol/L (3-11); BUN 41 mg/dL (7-18); Bilirubin, Total 0.4 mg/dL (0.2-1.0); CO2 22.8 mmol/L (21.0-32.0); CREATININE 2.1 mg/dL (0.55-1.02); Calcium 10.4 mg/dL (8.5-10.1); Chloride 101 mmol/L (98-107); Estimated GFR 28.53 (mL/min/1.73m2); Glucose 125 mg/dL (74-106); Magnesium 1.8 mg/dL (1.8-2.4); Potassium 4.4 mmol/L (3.5-5.1); Sodium 137 mmol/L (136-145); TSH (W/Ref FT4) 2.37 uIU/mL (0.36-3.74); Total Protein 9.3 g/dL (6.4-8.2)
[2023-06-30 18:56] VITALS: BP 110/60; PULSE 87; RESP 20; O2SAT 97
[2023-06-30 19:28] LABS: Lactate 0.5 mmol/L (0.6-1.4)
[2023-06-30 19:41] LABS: Anion Gap 10.2 mmol/L (3-11); BUN 40 mg/dL (7-18); CO2 23.8 mmol/L (21.0-32.0); CREATININE 1.8 mg/dL (0.55-1.02); Calcium 9.1 mg/dL (8.5-10.1); Chloride 105 mmol/L (98-107); Estimated GFR 34.32 (mL/min/1.73m2); Glucose 107 mg/dL (74-106); Sodium 139 mmol/L (136-145)
[2023-06-30 20:00] VITALS: BP 120/70
== END 2023-06-30 20:26 | disposition home or self-care (01) ==
PROVIDERS: Emergency Provider Student in an Organized Health Care Education/Training Program; PCP Nurse Practitioner Family
DX: R19.7 Diarrhea, unspecified (principal); I10 Essential (primary) hypertension; E78.5 Hyperlipidemia, unspecified; K21.9 Gastro-esophageal reflux disease without esophagitis; G47.33 Obstructive sleep apnea (adult) (pediatric)
CPT/HCPCS: 36415; 80048; 80053; 96361; 96374; 99283; 83605; 83735; 84443; 85025; J2405

== ENCOUNTER → 2023-07-10 00:35 | Outpatient (CLI) | payer MEDICAID, SELFPAY ==
--- NOTE | 2023-07-10 08:56 | DI.RAD_ITS ---
Exam(s) XR CHEST 2V PA LATERAL EXAM: XR CHEST 2V PA LATERAL CLINICAL HISTORY: uncontrolled asthma,[id number]. TECHNIQUE: 2D digital imaging was performed. COMPARISON: No exams were available for comparison FINDINGS: 2 views: Heart size is normal. The mediastinum is not widened. Lungs are clear. No infiltrates nor pleural effusions. IMPRESSION: No acute pulmonary findings. DATA REPOSITORY: RADIATION DOSE DELIVERED:
== END ==
PROVIDERS: PCP Nurse Practitioner Family; Visit Provider Student in an Organized Health Care Education/Training Program
DX: J45.909 Unspecified asthma, uncomplicated (principal)
CPT/HCPCS: 71046

== ENCOUNTER 2023-08-20 12:51 | Outpatient (REF) | payer MEDICAID, SELFPAY ==
[2023-08-20 15:32] LABS: Anion Gap 9.9 mmol/L (3-11); BUN 17 mg/dL (7-18); CO2 30.1 mmol/L (21.0-32.0); Calcium 10.8 mg/dL (8.5-10.1); Chloride 100 mmol/L (98-107); Estimated GFR 69.49 (mL/min/1.73m2); Glucose 101 mg/dL (74-106); Potassium 3.5 mmol/L (3.5-5.1); Sodium 140 mmol/L (136-145)
[2023-08-20 16:25] LABS: Hemoglobin A1C 5.8 % (<5.7)
== END 2023-08-20 12:52 | disposition home or self-care (01) ==
LOC: NCHCN 12:51
PROVIDERS: PCP Nurse Practitioner Family; Visit Provider Nurse Practitioner Family
DX: R79.89 Other specified abnormal findings of blood chemistry (principal); R73.03 Prediabetes
CPT/HCPCS: 80048; 83036

== ENCOUNTER 2023-09-21 10:06 | Outpatient (REF) | payer MEDICAID, SELFPAY ==
[2023-09-21 19:46] LABS: Anion Gap 8.6 mmol/L (3-11); BUN 20 mg/dL (7-18); CO2 28.4 mmol/L (21.0-32.0); CREATININE 1.2 mg/dL (0.55-1.02); Calcium 9.7 mg/dL (8.5-10.1); Chloride 102 mmol/L (98-107); Estimated GFR 55.84 (mL/min/1.73m2); Glucose 102 mg/dL (74-106); Potassium 4.3 mmol/L (3.5-5.1); Sodium 139 mmol/L (136-145)
== END 2023-09-21 10:07 | disposition home or self-care (01) ==
LOC: NCHCN 10:06
PROVIDERS: PCP Nurse Practitioner Family; Referring Provider Nurse Practitioner Family; Visit Provider Nurse Practitioner Family
DX: E83.52 Hypercalcemia (principal)
CPT/HCPCS: 80048

== ENCOUNTER 2024-01-19 16:05 | Outpatient (REF) | payer MEDICAID, SELFPAY ==
[2024-01-19 19:48] LABS: ESR 66 mm/hr (0-20)
[2024-01-20 17:38] LABS: Rheumatoid Factor 15.1 IU/mL (<12.0)
[2024-01-21 09:18] LABS: Hepatitis A Antibody IgM Negative (Negative); Hepatitis B Core Antibody Negative (Negative); Hepatitis B surface Ag Negative (Negative); Hepatitis C Ab w Rflx HCV PCR Negative (Negative)
[2024-01-21 12:04] LABS: Lyme Ab w Rflx to Lyme Confirm Negative (Negative)
[2024-01-21 14:51] LABS: ANA Interpretation Negative (Negative)
[2024-01-22 21:07] LABS: Anaplasma phagocytophilum Negative (Negative); B. miyamotoi PCR Negative (Negative); Babesia divergens/MO-1 Negative (Negative); Babesia duncani Negative (Negative); Babesia microti Negative (Negative); Ehrlichia chaffeensis Negative (Negative); Ehrlichia ewingii/canis Negative (Negative); Ehrlichia muris eauclairensis Negative (Negative)
== END 2024-01-19 16:06 | disposition home or self-care (01) ==
LOC: NCHCN 16:05
PROVIDERS: PCP Nurse Practitioner Family; Visit Provider Family Medicine
DX: M25.59 Pain in other specified joint (principal); R79.82 Elevated C-reactive protein (CRP); R70.0 Elevated erythrocyte sedimentation rate; R76.0 Raised antibody titer; Z11.59 Encounter for screening for other viral diseases; Z01.84 Encounter for antibody response examination
CPT/HCPCS: 85652; 86704; 86709; 86803; 87340; 87798; 86038; 86140; 86431; 86618

== ENCOUNTER 2024-01-22 16:19 | Outpatient (REF) | payer MEDICAID, SELFPAY ==
[2024-01-25 10:40] LABS: Cyclic Citrullinated Peptide <2.5 U/mL (<5.0)
== END 2024-01-22 16:20 | disposition home or self-care (01) ==
LOC: NCHCN 16:19
PROVIDERS: PCP Nurse Practitioner Family; Visit Provider Nurse Practitioner Family
DX: R76.0 Raised antibody titer (principal)
CPT/HCPCS: 86200

== ENCOUNTER → 2024-02-01 02:46 | Outpatient (CLI) | payer MEDICAID, SELFPAY ==
--- NOTE | 2024-02-01 08:43 | DI.RAD_ITS ---
Exam(s) XR ARTHRITIS SERIES EXAM: XR ARTHRITIS SERIES CLINICAL HISTORY: RHEUMATOID FACTOR DETECTED, R76.0. TECHNIQUE: 2D digital imaging was performed. COMPARISON: No exams were available for comparison FINDINGS: 3 views No evidence of fracture or subluxations. No osteopenia. No erosions evident. No obvious degenerati ve changes. Bone density normal. No osseous lesions. There are 2 small soft tissue calcifications in the right hand. One of these is just lateral to the head of the 2nd metacarpal and the other is adjacent to the lateral aspect of the base of the proxima l phalanx of the 3rd finger. IMPRESSION: No osseous lesions nor erosions. Two small soft tissue calcifications in the right and as described above. DATA REPOSITORY: RADIATION DOSE DELIVERED:
== END ==
PROVIDERS: PCP Nurse Practitioner Family; Visit Provider Nurse Practitioner Family
DX: R76.0 Raised antibody titer (principal)
CPT/HCPCS: 73120

== ENCOUNTER 2024-04-09 14:30 | Emergency (ER) | payer MEDICAID, SELFPAY ==
[2024-04-09 14:34] VITALS: BP 133/71; PULSE 78; RESP 16; TEMP 36.1; O2SAT 98
[2024-04-09 15:40] VITALS: BP 129/87; PULSE 78; RESP 18; TEMP 36.8; O2SAT 94
--- NOTE | 2024-04-09 15:42 | ED.GENADUL_ITS ---
Discharge Plan Disposition Patient Disposition: Home Condition: Stable Discharge Details Clinical Impression: Dental infection Primary Care Provider: Darline Salazar ED Provider: Mayank Wilson Home Meds and New Rx's Prescriptions: New amoxicillin-pot clavulanate 875-125 mg tablet 1 tab PO BID 10 Days Qty: 20 0RF chlorhexidine gluconate 0.12 % mouthwash 15 ml mucous membrane BID Qty: 1893 0RF Rx Instructions: swish and spit 15mL by mouth twice per day Continued cyclobenzaprine 10 mg tablet 10 mg PO HS meclizine 25 mg tablet 25 mg PO DAILY PRN epinephrine [EpiPen] 0.3 mg/0.3 mL auto-injector 0.3 mg IM ONCE Qty: 2 0RF Rx Instructions: as a single dose; may repeat once cinnamon bark 500 mg capsule 1,000 mg PO DAILY nortriptyline 10 mg capsule 10 mg PO DAILY pantoprazole 40 mg tablet,delayed release (DR/EC) 40 mg PO DAILY atenolol 50 mg tablet 50 mg PO DAILY escitalopram oxalate [Lexapro] 5 mg tablet 5 mg PO DAILY Dupixent Pen 300 mg/2 mL pen injector 600 mg subcut ONCE Qty: 4 0RF Rx Instructions: as a single dose Dupixent Pen 300 mg/2 mL pen injector 300 mg subcut Q2W Qty: 4 12RF (DME) cpap supplies See Rx Instructions .Route .MEDSUPPLY Rx Instructions: mask and tubing ascorbate calcium (vitamin C) 500 mg tablet 500 mg PO DAILY (DME) Aerochamber MV Spacer See Rx Instructions .Route Rx Instructions: As directed (DME) cpap 0 .Route .MEDSUPPLY turmeric-turmeric root extract 450-50 mg capsule 1 cap PO DAILY magnesium oxide 500 mg capsule 500 mg PO DAILY albuterol sulfate 90 mcg/actuation HFA aerosol inhaler 2 puff inhalation .Q 4-6H PRN levothyroxine 150 mcg capsule 150 mcg PO DAILY buspirone 15 mg tablet 15 mg PO BID olmesartan 20 mg tablet 40 mg PO DAILY budesonide-formoterol 160-4.5 mcg/actuation HFA aerosol inhaler 2 puff inhalation BID Qty: 10.2 12RF pregabalin 25 mg capsule 150 mg PO BID benzonatate 100 mg capsule 100 mg PO TID PRN (Reason: cough) Qty: 90 3RF calcium carbonate-vitamin D3 600 mg-10 mcg (400 unit) tablet 1 tab PO DAILY Patient Comments: TAKE ONE TABLET BY MOUTH THREE TIMES A DAY Discharge Instructions Instructions: Amoxicillin and Clavulanate, Oxycodone, Chlorhexidine Gluconate (Oral), Dental Pain ED Additional Instructions: You were seen in the emergency department for your acute on chronic dental infections, you need to find a suitable dentist this can be done by googling and calling every day and fill of office available to you, this will be the only definitive treatment and you are likely to have recurrent infections until you get this fixed. I have sent you a prescription for Augmentin I have also sent you home with to go doses to get you through until your pharmacy opens of antibiotics to treat your infection. Of also sent a prescription for antiseptic mouth rinse to [facility] in [place]. I have also sent you home with a small supply of oxycodone as you cannot take NSAIDs. Please continue to take 1000 mg of Tylenol every 6 hours. Please return to the emergency department for any severe increase in neck stiffness, inability to open or close your jaw, severe vocal changes with excessive drooling. Referrals: [facility] [Provider Group] Darline Salazar [Primary Care Provider] - Discharge Data Discharge Date/Time-TO BE ENTERED AT DEPARTURE: 04/09/24 16:13 HPI General Date/Time Provider Initiated Documentation: 04/09/24 15:01 . HPI Narrative: 48 year-old female presents to ED today by POV/ambulating with her with a chief complaint of L lower molar dental fracture chronic, acutely infected with onset over the past day and a half. Quality described as throbbing dental pain, gum pain, ear pain, no radiation to vocal changes, excessive drooling, neck stiffness, trismus. Severity is described as severe. Palliating factors include Tylenol only. Provoking factors include nothing specific- poor dentition. Events leading up to the incident/Associated Symptoms: Patient has been trying to find a dentist that takes her insurance. Patient not anticoagulated. Related Data Home Medications ?Medication ?Instructions ?Recorded ?Confirmed cyclobenzaprine 10 mg tablet 10 mg PO HS 01/18/20 04/09/24 calcium carbonate 600 mg-vitamin 1 tab PO DAILY 12/14/21 04/09/24 D3 10 mcg (400 unit) tablet albuterol sulfate 90 mcg/actuation 2 puff inhalation .Q 4-6H PRN 09/26/22 04/09/24 aerosol inhaler ascorbate calcium (vitamin C) 500 500 mg PO DAILY 09/26/22 04/09/24 mg tablet cpap 09/26/22 04/09/24 cpap supplies 09/26/22 04/09/24 inhalational spacing device 09/26/22 04/09/24 (Aerochamber MV spacer) magnesium oxide 500 mg capsule 500 mg PO DAILY 09/26/22 04/09/24 turmeric 450 mg-turmeric root 1 cap PO DAILY 09/26/22 04/09/24 extract 50 mg capsule buspirone 15 mg tablet 15 mg PO BID 04/09/23 04/09/24 levothyroxine 150 mcg capsule 150 mcg PO DAILY 04/09/23 04/09/24 meclizine 25 mg tablet 25 mg PO DAILY PRN 07/07/23 04/09/24 cinnamon bark 500 mg capsule 1,000 mg PO DAILY 07/16/23 04/09/24 epinephrine 0.3 mg/0.3 mL 0.3 mg (0.3 mL) IM ONCE #2 ea 07/16/23 04/09/24 injection, auto-injector (EpiPen) olmesartan 20 mg tablet 40 mg PO DAILY 07/16/23 04/09/24 budesonide-formoterol HFA 160 2 puff inhalation BID #10.2 grams 08/17/23 04/09/24 mcg-4.5 mcg/actuation aerosol inhaler atenolol 50 mg tablet 50 mg PO DAILY 10/05/23 04/09/24 dupilumab 300 mg/2 mL subcutaneous 300 mg (2 mL) subcut Q2W #4 mL 10/05/23 04/09/24 pen injector (Dupixent) dupilumab 300 mg/2 mL subcutaneous 600 mg (4 mL) subcut ONCE #4 mL 10/05/23 04/09/24 pen injector (Dupixent) escitalopram oxalate 5 mg tablet 5 mg PO DAILY 10/05/23 04/09/24 (Lexapro) pantoprazole 40 mg tablet,delayed 40 mg PO DAILY 10/05/23 04/09/24 release pregabalin 25 mg capsule 150 mg PO BID 11/10/23 04/09/24 nortriptyline 10 mg capsule 10 mg PO DAILY 01/04/24 04/09/24 benzonatate 100 mg capsule 100 mg PO TID PRN cough #90 caps 03/28/24 04/09/24 amoxicillin 875 mg-potassium 1 tab PO BID dental infection 10 04/09/24 clavulanate 125 mg tablet days #20 tabs chlorhexidine gluconate 0.12 % 15 ml mucous membrane BID #1,893 mL 04/09/24 mouthwash Previous Rx's ?Medication ?Instructions ?Recorded epinephrine 0.3 mg/0.3 mL 0.3 mg (0.3 mL) IM ONCE #2 ea 07/16/23 injection, auto-injector (EpiPen) budesonide-formoterol HFA 160 2 puff inhalation BID #10.2 grams 08/17/23 mcg-4.5 mcg/actuation aerosol inhaler dupilumab 300 mg/2 mL subcutaneous 300 mg (2 mL) subcut Q2W #4 mL 10/05/23 pen injector (Dupixent) dupilumab 300 mg/2 mL subcutaneous 600 mg (4 mL) subcut ONCE #4 mL 10/05/23 pen injector (Dupixent) benzonatate 100 mg capsule 100 mg PO TID PRN cough #90 caps 03/28/24 amoxicillin 875 mg-potassium 1 tab PO BID dental infection 10 04/09/24 clavulanate 125 mg tablet days #20 tabs chlorhexidine gluconate 0.12 % 15 ml mucous membrane BID #1,893 mL 04/09/24 mouthwash Allergies Allergy/AdvReac Type Severity Reaction Status Date / Time cigarette smoke Allergy Unknown burning Verified 04/09/24 14:37 throat cats Allergy Unknown watery eyes Uncoded 04/09/24 14:37 dust Allergy Unknown sneezing Uncoded 04/09/24 14:37 seasonal Allergy Unknown watery Uncoded 04/09/24 14:37 eyes, sneezing General Stated Complaint: DentalOral AGUSTÍN: 4 Review of Systems All systems reviewed & are unremarkable except as noted in HPI and below Exam Narrative Exam Narrative: GENERAL APPEARANCE: Well-nourished, non-toxic, awake and alert, atraumatic, no acute distress. SKIN: Warm, pink, dry, intact, without rashes/lesions/ulcerations. HEAD: Normocephalic, atraumatic, normal hair distribution for gender/age. EYES: Normal conjunctiva, no exudates on lids/lashes. ENT: Nares patent, no circumoral cyanosis, no facial swelling, diffuse poor dentition with a fractured lower left molar with no gingival abscess, uvula midline, no vocal changes, no trismus NECK: Supple, trachea midline, painless cervical ROM. LUNGS/CHEST: Non-labored respirations, normal A/P diameter, symmetrical expansion, no chest wall deformity HEART (CV/PV): No peripheral edema, no JVD. ABDOMEN: Soft, non-distended, no guarding. MSK: Normal ROM, no swelling/deformity to bilateral UEs or LEs, moving all extremities without weakness, no cyanosis, spine midline without tenderness, normal curvature. NEURO: Mental Status AAOx4 - alert to person, place, time, events No facial droop, no forehead involvement. Motor: No focal weakness - strength 5/5 in bilateral UEs and LEs, proximal and distal, symmetric. Sensory: sensation intact to light touch globally. Gait normal: patient ambulated without ataxia into ED room. PSYCH: euthymic, cooperative, pleasant, appropriate speech Course Vital Signs Vital signs: Vital Signs Temperature 36.1 C L 04/09/24 14:34 Pulse 78 04/09/24 14:34 Respiratory Rate 16 04/09/24 14:34 Blood Pressure 133/71 04/09/24 14:34 Pulse Oximetry 98 04/09/24 14:34 Temperature 36.1 C L 04/09/24 14:34 Pulse 78 04/09/24 14:34 Respiratory Rate 16 04/09/24 14:34 Respiratory Effort Normal 04/09/24 14:39 Blood Pressure 133/71 04/09/24 14:34 Pulse Oximetry 98 04/09/24 14:34 Pain Level 8 04/09/24 14:34 Medical Decision Making This dictation utilizes [id number] dictation software and may contain unedited grammatical errors. 48 year-old female presents to ED today by POV/ambulating with her with a chief complaint of L lower molar dental fracture chronic, acutely infected with onset over the past day and a half. Quality described as throbbing dental p ain, gum pain, ear pain, no radiation to vocal changes, excessive drooling, neck stiffness, trismus. Severity is described as severe. Palliating factors include Tylenol only. Provoking factors include nothing specific- poor dentition. Events leading up to the incident/Associated Symptoms: Patient has been trying to find a dentist that takes her insurance. Patients' medical history: Fibromyalgia, d ental caries. Family and social history: noncontributory. Pertinent exam findings / vital signs include diffuse poor dentition with a fractured left lower posterior molar with gingival erythema without visible abscess, no trismus, no vocal changes, uvula midline. Differential / pathologies of concern include dental infection. Diagnostic studies of: -None. Interventions of: -Augmentin prescription, to go pack of oxycodone, patient cannot take NSAIDs. Chlorhexidine mouth rinse by Rx. ED Course/Assessment/Plan: 48-year-old female presents with diffuse poor dentition and ongoing acute on chronic dental infection from fractured lower left molar, there is no visible abscess and she has no worrying symptoms of deep space infection or peritonsillar abscess, I sent a prescription for Augmentin as well as chlorhexidine mouth rinse, counseled on homeopathic and conservative management at home with Tylenol, provided oxycodone to go if she cannot take NSAIDs, strict return criteria for vocal changes, neck stiffness, inability to open or close jaw, fever, worsening symptoms despite treatment. 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 Disposition of dental infection. Patient verbalized understanding of the plan and return to ED criteria and engaged in shared decision making. Medical Records Medical records reviewed: Yes I reviewed the patient's medical records. Quality:SDOH Health Related Social Needs: No Data to Display [facility] All Active Problems (Updated 04/09/24 @ 15:[address]) Dental infection (Acute) Encounter for injection education (Acute) Arthritis of left ankle (Acute) Internal derangement of right knee (Acute) ADHD (Acute) Anxiety disorder (Acute) Binge eating disorder (Acute) Hypertensive disorder (Chronic) Fibromyalgia (Acute) GERD (gastroesophageal reflux disease) (Chronic) Carpal tunnel syndrome on left (Acute) Depression, major (Chronic) Asthma (Chronic) Obesity (Chronic) Obstructive sleep apnea (adult) (pediatric) (Acute) Osteoarthritis (Chronic) Chronic pain (Chronic) Prediabetes (Acute) Restless legs syndrome (Acute) Seasonal allergies (Acute) Tension headache (Acute) Vitamin D deficiency (Acute) Chronic foot pain (Acute) Dental caries (Acute) Hyperlipidemia (Acute) Unresolved grief (Acute) Hypothyroid (Chronic) Insomnia (Acute) Congenital pes planus (Acute) Plantar fasciitis, bilateral (Acute) Fatigue (Acute) Elevated sedimentation rate (Acute) Elevated C-reactive protein (Acute) Decreased hearing (Acute) Rash (Acute) Rectal bleeding (Acute) Corneal abrasion (Acute) Paresthesia of foot (Acute) Knee pain (Acute) Ear pain (Acute) Chronic cough (Acute) Dyspnea (Acute) COVID-19 (Acute) Tear of medial meniscus of left knee (Acute) Social History (Updated 09/26/22 @ 13:53 by Kacey Herrera) Smoking/Tobacco Use Status: Never Smoking risk assessment performed?: Yes Alcohol Intake: never Drug use: Never Substance use type: does not use Housing: house Current gender identity: female Do you feel safe at home: Yes Do you feel safe in your relationship?: Yes
[2024-04-09] MEDS: oxyCODONE 5 MG TAB PO (16:12)
[2024-04-09] MEDS: Amoxicillin 875/Clav. 125 TAB PO (16:12)
[2024-04-09] MEDS: Amox. 875/Clav. 125, 2 TABS/BTL 1 TAB PO (16:12)
[2024-04-09 16:13] VITALS: BP 148/89; PULSE 79; RESP 16; TEMP 37.2; O2SAT 98
== END 2024-04-09 16:13 | disposition home or self-care (01) ==
PROVIDERS: Emergency Provider Physician Assistant; PCP Nurse Practitioner Family
DX: K08.89 Other specified disorders of teeth and supporting structures (principal); K04.7 Periapical abscess without sinus; I10 Essential (primary) hypertension; E78.5 Hyperlipidemia, unspecified
CPT/HCPCS: 99283

== ENCOUNTER 2024-06-02 17:55 | Outpatient (REF) | payer MEDICAID, SELFPAY | END 2024-06-02 17:56 | disposition home or self-care (01) | LOC: LBN 17:55 | PROVIDERS: PCP Nurse Practitioner Family; Visit Provider Family Medicine | DX: R30.0 Dysuria (principal) | CPT/HCPCS: 87077; 87086; 87186 ==

== ENCOUNTER 2024-12-22 16:10 | Outpatient (REF) | payer MEDICARE, MEDICAID, SELFPAY ==
[2024-12-22 16:34] LABS: HGB 12.5 g/dL (11.2-15.7); MCH 29.5 pg (27.0-33.0); MCHC 32.1 % (32.0-36.0); MCV 92 fL (80-95); MPV 10.8 fL (8.0-11.0); Platelet Count 329 10^3/uL (130-400); RBC 4.24 10^6/uL (3.93-5.22); RDW 15.7 % (11.7-14.6); RDW-SD 52.1 fL; WBC 7.42 10^3/uL (4.4-10.8)
[2024-12-22 17:07] LABS: ALT 40 U/L (14-59); AST 30 U/L (15-37); Albumin 3.2 g/dL (3.4-5.0); Alkaline Phosphatase 146 U/L (46-116); Anion Gap 7.9 mmol/L (3-11); BUN 24 mg/dL (7-18); Bilirubin, Total 0.3 mg/dL (0.2-1.0); CO2 27.1 mmol/L (21.0-32.0); CREATININE 1.2 mg/dL (0.55-1.02); Calcium 9.2 mg/dL (8.5-10.1); Chloride 104 mmol/L (98-107); Estimated GFR 55.15 (mL/min/1.73m2); Glucose 133 mg/dL (74-106); Magnesium 1.8 mg/dL (1.8-2.4); Potassium 4.7 mmol/L (3.5-5.1); Sodium 139 mmol/L (136-145); Total Protein 7.3 g/dL (6.4-8.2)
[2024-12-22 17:27] LABS: Hemoglobin A1C 6.1 % (<5.7)
== END 2024-12-22 16:11 | disposition home or self-care (01) ==
LOC: NCHCN 16:10
PROVIDERS: PCP Nurse Practitioner Family; Visit Provider Nurse Practitioner Family
DX: E03.9 Hypothyroidism, unspecified (principal); E66.9 Obesity, unspecified
CPT/HCPCS: 80053; 85027; 83036; 83735; 84443

== ENCOUNTER 2024-12-29 12:11 | Outpatient (REF) | payer MEDICARE, MEDICAID, SELFPAY ==
--- NOTE | 2024-12-29 08:50 | PAPFT_PTH ---
PATIENT: Diane Wilson LOC: [facility]#:[id number] AGE/SX: 49/F ROOM: RE12/29/[address]: Darline Salazar : 1975 BED: DIS: 12/29/2024 SPEC #: [id number] RECD: 12/29/24 18:09 STATUS: ERNIE REQ #: [id number] JHOANA: 12/29/24 08:[address]: Darline Salazar DEPT: [facility] Cytology RECD BY: Trinity Hudson Tissues: 1 - CX/ENDOCX FOR PAP SMEARS Procedures: PAP THIN PREP/UVM Screening HPV DNA PROBE Comments: [id number] (HPV 16 & 18/45) (CHLAMYDIA/GC)
[2024-12-30 12:12] LABS: Chlamydia Result Negative (Negative); GC Result Negative (Negative)
== END 2024-12-29 12:12 | disposition home or self-care (01) ==
LOC: NCHCN 12:11
PROVIDERS: PCP Nurse Practitioner Family; Visit Provider Nurse Practitioner Family
DX: Z11.51 Encounter for screening for human papillomavirus (HPV) (principal); Z11.3 Encounter for screening for infections with a predominantly sexual mode of transmission; Z01.419 Encounter for gynecological examination (general) (routine) without abnormal findings
CPT/HCPCS: 87491; 87591; 88142; 87624

== ENCOUNTER 2025-02-13 02:23 | Outpatient (CLI) | payer MEDICARE, SELFPAY ==
--- NOTE | 2025-02-13 | DI.US_ITS ---
Exam(s) US ABDOMEN LIMITED EXAM: US ABDOMEN LIMITED CLINICAL HISTORY: Alkaline phosphatase elevation, R74.8; liver US TECHNIQUE: Ultrasound abdomen performed using standard protocol. COMPARISON: No exams were available for comparison FINDINGS: PANCREAS: Normal where visualized. LIVER: There is diffuse increased echogenicity of the liver. Hepatopetal flow in the Portal Vein. The liver measures in 20.7 cm length. No evidence of a hepatic mass. The liver has a coarsened echotexture. GALLBLADDER: No evidence of cholelithiasis. No evidence of wall thickening. No pericholecystic fluid identified. BILIARY SYSTEM: Common bile duct measures < 7 mm. No intrahepatic biliary ductal dilation. BALDWIN'S SIGN: Negative. RIGHT KIDNEY: The kidney is difficult to visualize due to patient body habitus. No gross abnormalities identified. No evidence of hydronephrosis. ASCITES: None seen. IMPRESSION: 1. Hepatomegaly and hepatic steatosis. 2. Poor visualization of the kidney due to patient body habitus. DATA REPOSITORY:
--- NOTE | 2025-02-13 08:22 | DI.MAMMO_ITS ---
Exam(s) MG MAMMO SCREENING 60 MIN DUR EXAM: MG MAMMO SCREENING 60 MIN DUR CLINICAL HISTORY: Screening, Z12.31,LARGE BREASTS TECHNIQUE: Bilateral full field digital CC and MLO mammographic images were obtained with 3D tomosynthesis and utilizing computer aided detection (CAD). COMPARISON: Comparison is made with prior examinations. FINDINGS: Masses/Architectural Distortion: No suspicious masses or areas of architectural distortion are present. Microcalcifications: No suspicious pleomorphic-type are seen. Skin Thickening/Nipple Retraction: None. IMPRESSION: 1. No significant interval change with no specific features of malignancy noted. 2. Unless there is more urgent need, screening mammography is recommended, as per [place] [employer] guidelines. BI-RADS Category 1 - Negative Breast Density - Category A - The breast are almost entirely fatty. Breast density Category C or D implies that the patient has dense breast tissue. Dense breast tissue can make it harder to find cancer on a mammogram. Dense breast tissue is also associated with an increased risk of breast cancer. This information about the result of the mammogram report was provided to the patient to raise their awareness. Use this report when you speak with the patient about their risks for breast cancer, which includes their family history. At that time, you may recommend additional screening tests (Ultrasound or MRI) as these tests may add significant information. A negative radiographic report should not delay biopsy if a dominant or clinically suspicious mass is present. Up to ten percent of cancers are not identified on mammography. A negative report may reinforce clinical impression. Adenosis and dense breasts may obscure an underlying neoplasm. False positive reports average 6 to 10%. Patient will receive a letter notifying them of these results.
== END 2025-02-13 02:43 ==
LOC: DI 02:23
PROVIDERS: PCP Nurse Practitioner Family; Visit Provider Nurse Practitioner Family
DX: Z12.31 Encounter for screening mammogram for malignant neoplasm of breast (principal); K76.0 Fatty (change of) liver, not elsewhere classified; R16.0 Hepatomegaly, not elsewhere classified
CPT/HCPCS: 77063; 77067; 76705

== ENCOUNTER → 2025-02-22 08:35 | Outpatient (BNVA) | payer MEDICARE, MEDICAID, SELFPAY | PROVIDERS: PCP Nurse Practitioner Family; Referring Provider Nurse Practitioner Family; Visit Provider Internal Medicine Pulmonary Disease | DX: J45.50 Severe persistent asthma, uncomplicated (principal); R06.00 Dyspnea, unspecified; G47.33 Obstructive sleep apnea (adult) (pediatric); Z77.22 Contact with and (suspected) exposure to environmental tobacco smoke (acute) (chronic) | CPT/HCPCS: 99214 ==

== ENCOUNTER 2025-03-02 03:15 | Outpatient (CLI) | payer MEDICARE, SELFPAY ==
[2025-03-02] MEDS: Inhaler, Assist Device 1 EACH MC (09:28)
[2025-03-02] MEDS: Levalbuterol HFA 15 GM INH 4 PUFF IH (09:28)
--- NOTE | 2025-03-02 09:40 | W.PFT ---
Date of service: 03/02/25 Time of Service: 08:05 Pulmonary Function Test Result Indications: Dyspnea, asthma Impression 1. Good patient effort was noted. ATS standards for reproducibility were met. 2. Normal spirometry. 3. Following the administration of a bronchodilator there was not a significant response 4. TLC was normal. No evidence of restrictive lung disease 5. DLCO was borderline reduced, indicating a very mild defect in alveolar gas exchange
== END 2025-03-02 03:16 | disposition home or self-care (01) ==
LOC: RT 03:15
PROVIDERS: PCP Nurse Practitioner Family; Visit Provider Internal Medicine Pulmonary Disease
DX: R06.00 Dyspnea, unspecified (principal); J45.909 Unspecified asthma, uncomplicated
CPT/HCPCS: 94060; 94726; 94729

== ENCOUNTER 2025-05-24 16:47 | Emergency (ER) | payer MEDICARE, SELFPAY ==
[2025-05-24 16:50] VITALS: BP 147/89; PULSE 91; RESP 20; TEMP 36.7; O2SAT 98
--- NOTE | 2025-05-24 17:00 | DI.CT_ITS ---
Exam(s) CT BRAIN NECK CTA EXAM: CT BRAIN NECK CTA CLINICAL HISTORY: gait instability. TECHNIQUE: Imaging Protocol: Axial CT angiography was performed with multi- slice acquisition and multi-planar and MIP reconstructions. CONTRAST MATERIAL: Intravenous: Omnipaque 350 Contrast volume:70 ml COMPARISON: No exams were available for comparison FINDINGS: CT Head W/O and W contrast: Ventricles and Extra axial spaces: Normal in size and morphology for the patient's age. Hemorrhage: None. Cerebral parenchyma: No evidence of acute infarct or mass. Midline shift: None. Brainstem/Cerebellum: No acute findings.. Calvarium: Normal. Visualized Paranasal sinuses/Mastoids: Clear. Soft Tissues: Unremarkable. Enhancement: Normal. Venous sinuses are patent. Pituitary: Partially empty sella. Orbits: Unremarkable. CTA Brain W: Internal Carotid Arteries: No significant atherosclerotic changes Right: No aneurysm, occlusion or significant stenosis. Left: No aneurysm, occlusion or significant stenosis. Middle Cerebral Arteries: Right: No aneurysm, occlusion or significant stenosis. Left: No aneurysm, occlusion or significant stenosis. Anterior Cerebral Arteries: Right: No aneurysm, occlusion or significant stenosis. Left: No aneurysm, occlusion or significant stenosis. Posterior cerebral Arteries: Right: No aneurysm, occlusion or significant stenosis. Left: No aneurysm, occlusion or significant stenosis. Vertebral Arteries: Right: No aneurysm, occlusion or significant stenosis. Left: No aneurysm, occlusion or significant stenosis. Basilar Artery: No aneurysm, occlusion or significant stenosis. CTA Neck W: No significant atherosclerotic changes Visualized aorta: Unremarkable. Visualized pulmonary arteries: Unremarkable. Subclavian arteries: Unremarkable. Common Carotid: Right: No dissection, occlusion or significant stenosis. Left: No dissection, occlusion or significant stenosis. External Carotid: Right: No dissection, occlusion or significant stenosis. Left: No dissection, occlusion or significant stenosis. Internal Carotid: Right: No dissection, occlusion or significant stenosis. Left: No dissection, occlusion or significant stenosis. Vertebral Artery: Right: No dissection, occlusion or significant stenosis. Left: No dissection, occlusion or significant stenosis. Lung Apices: No acute findings. Bones: No acute abnormality. Soft Tissues: Normal. IMPRESSION: 1. CTA brain: Normal CTA examination of the [place]. 2. Head CT: No acute abnormality. 3. CTA neck: No evidence of occlusion, significant stenosis or dissection. No significant atherosclerotic changes. RADIATION DOSE DELIVERED: Total DLP DATA REPOSITORY: All CT scans at this facility are submitted to the National Radiology Data Registry (NRDR) Dose Index Registry (DIR) with the [employer] (ACR). RADIATION OPTIMIZATION: All CT scans at this facility use at least one of these dose optimization techniques: automated exposure control; mA and/or kV adjustment per patient size (includes targeted exams where dose is matched to clinical indication); or iterative reconstruction.
--- NOTE | 2025-05-24 17:35 | W.ED.GENAD ---
Discharge Plan Disposition Patient Disposition: Home Condition: Stable Discharge Details Clinical Impression: Urinary tract infection, Dehydration Primary Care Provider: Blaise Myrick ED Provider: Mayank Wilson Home Meds and New Rx's Prescriptions: New cephalexin 500 mg capsule 500 mg PO QID 10 Days Qty: 40 0RF Continued cyclobenzaprine 10 mg tablet 10 mg PO BID meclizine 25 mg tablet 25 mg PO DAILY PRN epinephrine [EpiPen] 0.3 mg/0.3 mL auto-injector 0.3 mg IM ONCE Qty: 2 0RF Rx Instructions: as a single dose; may repeat once cinnamon bark 500 mg capsule 1,000 mg PO DAILY nortriptyline 10 mg capsule 10 mg PO DAILY pantoprazole 40 mg tablet,delayed release (DR/EC) 40 mg PO DAILY atenolol 50 mg tablet 50 mg PO DAILY escitalopram oxalate [Lexapro] 5 mg tablet 10 mg PO DAILY melatonin 3 mg tablet 6 mg PO HS multivitamin Tablet 1 tab PO DAILY ipratropium-albuterol 0.5 mg-3 mg(2.5 mg base)/3 mL solution for nebulization 3 ml inhalation BID Qty: 180 12RF metformin 500 mg tablet 500 mg PO BID (DME) cpap supplies See Rx Instructions .Route .MEDSUPPLY Rx Instructions: mask and tubing ascorbate calcium (vitamin C) 500 mg tablet 500 mg PO DAILY (DME) Aerochamber MV Spacer See Rx Instructions .Route Rx Instructions: As directed (DME) cpap 0 .Route .MEDSUPPLY turmeric-turmeric root extract 450-50 mg capsule 1 cap PO DAILY magnesium oxide 500 mg capsule 500 mg PO DAILY albuterol sulfate 90 mcg/actuation HFA aerosol inhaler 2 puff inhalation .Q 4-6H PRN levothyroxine 150 mcg capsule 150 mcg PO DAILY buspirone 15 mg tablet 15 mg PO BID olmesartan 20 mg tablet 40 mg PO DAILY pregabalin 25 mg capsule 150 mg PO BID Tezspire 210 mg/1.91 mL (110 mg/mL) pen injector 210 mg subcut Q4W Qty: 1.91 12RF benzonatate 100 mg capsule 100 mg PO TID PRN (Reason: cough) Qty: 90 3RF Spiriva Respimat 2.5 mcg/actuation mist 2 puff inhalation DAILY Qty: 4 6RF fluticasone propion-salmeterol [Advair HFA] 230-21 mcg/actuation HFA aerosol inhaler 2 puff inhalation BID Qty: 12 12RF Discharge Instructions Instructions: Cephalexin, Dehydration, Adult ED, Urinary Tract Infection, Adult ED Additional Instructions: You were seen in the emergency department for your mild dehydration in the setting of recovery from gastroenteritis last week, your laboratory workup showed a mild lactic acidosis which normalized with fluid intake indicating this is from dehydration and not infection. Your electrolytes are within normal limits, your CT of your brain and neck are negative, there is a question of a urinary tract infection on your urinalysis and we have sent you home with Keflex and sent a prescription for this medication, take this as directed, stay well-hydrated and nourished, return for any emergent concern. Referrals: Blaise Myrick [Primary Care Provider, Medicine] [facility] General Date/Time Provider Initiated Documentation: 05/24/25 17:06. HPI Narrative: 49 year-old female presents to ED today by POV/ambulating with a chief complaint of dizziness, weakness- had a GI bug last week and was having nausea and diarrhea- that is resolved. Also reporting gait abnormality that has been present off and on for years. Quality described as generalized weakness and tremors, no radiation to fever, chest pain, shortness of breath, vomiting, hematemesis, coffee-ground emesis, constipation, abdominal pain, cough. Severity is described as moderate. Palliating factors include nothing specific attempted. Provoking factors include nothing specific. Patient not anticoagulated. Related Data Home Medications ?Medication ?Instructions ?Recorded ?Confirmed albuterol sulfate 90 mcg/actuation 2 puff inhalation .Q 4-6H PRN 09/26/22 05/24/25 aerosol inhaler ascorbate calcium (vitamin C) 500 500 mg PO DAILY 09/26/22 05/24/25 mg tablet cpap 09/26/22 05/24/25 cpap supplies 09/26/22 05/24/25 inhalational spacing device 09/26/22 05/24/25 (Aerochamber MV spacer) magnesium oxide 500 mg capsule 500 mg PO DAILY 09/26/22 05/24/25 turmeric 450 mg-turmeric root 1 cap PO DAILY 09/26/22 05/24/25 extract 50 mg capsule buspirone 15 mg tablet 15 mg PO BID 04/09/23 05/24/25 levothyroxine 150 mcg capsule 150 mcg PO DAILY 04/09/23 05/24/25 meclizine 25 mg tablet 25 mg PO DAILY PRN 07/07/23 05/24/25 cinnamon bark 500 mg capsule 1,000 mg PO DAILY 07/16/23 05/24/25 epinephrine 0.3 mg/0.3 mL 0.3 mg (0.3 mL) IM ONCE #2 ea 07/16/23 05/24/25 injection, auto-injector (EpiPen) olmesartan 20 mg tablet 40 mg PO DAILY 07/16/23 05/24/25 atenolol 50 mg tablet 50 mg PO DAILY 10/05/23 05/24/25 pantoprazole 40 mg tablet,delayed 40 mg PO DAILY 10/05/23 05/24/25 release pregabalin 25 mg capsule 150 mg PO BID 11/10/23 05/24/25 nortriptyline 10 mg capsule 10 mg PO DAILY 01/04/24 05/24/25 melatonin 3 mg tablet 6 mg PO HS 04/14/24 05/24/25 escitalopram oxalate 5 mg tablet 10 mg PO DAILY 08/16/24 05/24/25 (Lexapro) ipratropium 0.5 mg-albuterol 3 mg 3 ml inhalation BID wheezing #180 08/16/24 05/24/25 (2.5 mg base)/3 mL nebulization mL soln multivitamin 1 tab PO DAILY 08/16/24 05/24/25 tezepelumab-ekko 210 mg/1.91 mL 210 mg (1.91 mL) subcut Q4W #1.91 08/17/24 05/24/25 (110 mg/mL) subcutaneous pen mL injector (Tezspire) metformin 500 mg tablet 500 mg PO BID 09/05/24 05/24/25 cyclobenzaprine 10 mg tablet 10 mg PO BID 11/16/24 05/24/25 benzonatate 100 mg capsule 100 mg PO TID PRN cough #90 caps 12/12/24 05/24/25 tiotropium bromide 2.5 2 puff inhalation DAILY #4 grams 01/02/25 05/24/25 mcg/actuation mist for inhalation (Spiriva Respimat) fluticasone propionate 230 2 puff inhalation BID #12 grams 03/22/25 05/24/25 mcg-salmeterol 21 mcg/actuation HFA inhaler (Advair HFA) cephalexin 500 mg capsule 500 mg PO QID 10 days #40 caps 05/24/25 Previous Rx's ?Medication ?Instructions ?Recorded epinephrine 0.3 mg/0.3 mL 0.3 mg (0.3 mL) IM ONCE #2 ea 07/16/23 injection, auto-injector (EpiPen) ipratropium 0.5 mg-albuterol 3 mg 3 ml inhalation BID wheezing #180 08/16/24 (2.5 mg base)/3 mL nebulization mL soln tezepelumab-ekko 210 mg/1.91 mL 210 mg (1.91 mL) subcut Q4W #1.91 08/17/24 (110 mg/mL) subcutaneous pen mL injector (Tezspire) benzonatate 100 mg capsule 100 mg PO TID PRN cough #90 caps 12/12/24 tiotropium bromide 2.5 2 puff inhalation DAILY #4 grams 01/02/25 mcg/actuation mist for inhalation (Spiriva Respimat) fluticasone propionate 230 2 puff inhalation BID #12 grams 03/22/25 mcg-salmeterol 21 mcg/actuation HFA inhaler (Advair HFA) cephalexin 500 mg capsule 500 mg PO QID 10 days #40 caps 05/24/25 Allergies Allergy/AdvReac Type Severity Reaction Status Date / Time cigarette smoke Allergy Unknown burning Verified 05/24/25 16:55 throat acetylcysteine (From NAC) AdvReac Intermediate Other (See Verified 05/24/25 16:55 Comment) amitriptyline AdvReac Intermediate Headache Verified 05/24/25 16:55 amlodipine AdvReac Intermediate Headache Verified 05/24/25 16:55 cetirizine (From Zyrtec) AdvReac Intermediate Wheezing Verified 05/24/25 16:55 duloxetine (From Cymbalta) AdvReac Intermediate Headache Verified 05/24/25 16:55 sertraline AdvReac Intermediate Headache Verified 05/24/25 16:55 cats Allergy Unknown watery eyes Uncoded 05/24/25 16:55 dust Allergy Unknown sneezing Uncoded 05/24/25 16:55 seasonal Allergy Unknown watery Uncoded 05/24/25 16:55 eyes, sneezing General Stated Complaint: Dizzy/Sync AGUSTÍN: 3 Review of Systems All systems reviewed & are unremarkable except as noted in HPI and below Exam Narrative Exam Narrative: GENERAL APPEARANCE: Well-nourished, non-toxic, awake and alert, atraumatic, no acute distress. SKIN: Warm, pink, dry, intact, without rashes/lesions/ulcerations. HEAD: Normocephalic, atraumatic, normal hair distribution for gender/age. EYES: Normal conjunctiva, no exudates on lids/lashes. ENT: Nares patent, no circumoral cyanosis, no facial swelling NECK: Supple, trachea midline, painless cervical ROM. LUNGS/CHEST: Lungs CTA bilaterally- no rhonchi/rales/wheezes diffusely, non-labored respirations, normal A/P diameter, symmetrical expansion, no chest wall deformity HEART (CV/PV): Regular rate and rhythm without murmur, no peripheral edema, no JVD. ABDOMEN: Soft, non-distended, no guarding, no tenderness. MSK: Normal ROM, no swelling/deformity to bilateral UEs or LEs, moving all extremities without weakness, no cyanosis, spine midline without tenderness, normal curvature. NEURO: Mental Status AAOx4 - alert to person, place, time, events No facial droop, no forehead involvement, no dysmetria with FNF/repetitive motion/heel-lazar Motor: No focal weakness - strength 5/5 in bilateral UEs and LEs, proximal and distal, symmetric. Sensory: sensation intact to light touch globally. Gait normal with regular ambulation, patient unable to duck-walk, toe walk, or walk the line - possibly due to habitus PSYCH: euthymic, cooperative, pleasant, appropriate speech Course Vital Signs Vital signs: Vital Signs Temperature 36.7 C 05/24/25 16:50 Pulse 91 H 05/24/25 16:50 Respiratory Rate 20 05/24/25 16:50 Blood Pressure 147/89 H 05/24/25 16:50 Pulse Oximetry 98 05/24/25 16:50 Temperature 36.7 C 05/24/25 16:50 Pulse 91 H 05/24/25 16:50 Respiratory Rate 20 05/24/25 16:50 Blood Pressure 147/89 H 10/22/25 16:50 Blood Pressure Position Sitting 05/24/25 16:50 Pulse Oximetry 98 05/24/25 16:50 Oxygen Delivery Method Room Air 05/24/25 16:50 Oxygen Flow Rate 0 05/24/25 16:50 Medical Decision Making This dictation utilizes [id number] dictation software and may contain unedited grammatical errors. 49 year-old female presents to ED today by POV/ambulating with a chief complaint of dizziness, weakness- had a GI bug last week and was having nausea and diarrhea- that is resolved. Also reporting gait abnormality that has been present off and on for years. Quality described as generalized weakness and tremors, no radiation to fever, chest pain, shortness of breath, vomiting, hematemesis, coffee-ground emesis, constipation, abdominal pain, cough. Severity is described as moderate. Palliating factors include nothing specific attempted. Provoking factors include nothing specific. Patients' medical history: Arthritis, anxiety, hypertension, fibromyalgia, GERD, obesity, restless leg syndrome. Family and social history: No ETOH intake, eats normal diet, no exercise. Pertinent exam findings / vital signs include neuro intact, no dysmetria, no weakness, gait instability likely based on body habitus and ability to tiptoe or heel walk, no ataxia, benign cardiopulmonary status, benign abdomen. Differential / pathologies of concern include dehydration, electrolyte abnormality, vertebral dissection or other intracranial abnormality. Diagnostic studies of: -CBC, CMP, lactate, lipase, urinalysis, magnesium, TSH, CTA head and neck. - CBC is completely unremarkable - Initial lactate 3.0, given 1.5 L fluid with normalization of 1.4 - CMP shows possible mild dehydration with creatinine 1.2, mildly elevated liver enzymes, patient aware of history of enlarged liver without alcohol intake - Magnesium within normal limits - TSH within normal limits - Lipase negative - UA shows possible UTI with positive for nitrites, culture pending will give Keflex - CTA brain and neck completely unremarkable Interventions of: -1L IVF LR, 500mL IVF NS with subjective improvement ED Course/Assessment/Plan: 49-year-old female presents with shakiness and weakness after prolonged GI illness last week with lots of diarrhea, her laboratory workup was unremarkable for signs of infection or severe electrolyte derangements she does have elevated lactate which normalized with fluids, CTA brain and neck is unremarkable for any dissection or stroke pathology, patient is subjectively improvement counseled her on following up with her primary care provider and return to ED for any emergent concerns. Findings not consistent with CVA, dissection, sepsis, liver failure, renal failure. Disposition of Dehydration, Urinary Tract Infection. Patient verbalized understanding of the plan and return to ED criteria and engaged in shared decision making. Medical Records Medical records reviewed: Yes I reviewed the patient's medical records. Imaging Data Radiologic Study: Attestation: I personally reviewed and interpreted this imaging study as follows: Imaging: CT Scan Radiologist's impression: EXAM: CT BRAIN NECK CTA CLINICAL HISTORY: gait instability. TECHNIQUE: Imaging Protocol: Axial CT angiography was performed with multi-slice acquisition and multi-planar and MIP reconstructions. CONTRAST MATERIAL: Intravenous: Omnipaque 350 Contrast volume:70 ml COMPARISON: No exams were available for comparison FINDINGS: CT Head W/O and W contrast: Ventricles and Extra axial spaces: Normal in size and morphology for the patient's age. Hemorrhage: None. Cerebral parenchyma: No evidence of acute infarct or mass. Midline shift: None. Brainstem/Cerebellum: No acute findings.. Calvarium: Normal. Visualized Paranasal sinuses/Mastoids: Clear. Soft Tissues: Unremarkable. Enhancement: Normal. Venous sinuses are patent. Pituitary: Partially empty sella. Orbits: Unremarkable. CTA Brain W: Internal Carotid Arteries: No significant atherosclerotic changes Right: No aneurysm, occlusion or significant stenosis. Left: No aneurysm, occlusion or significant stenosis. Middle Cerebral Arteries: Right: No aneurysm, occlusion or significant stenosis. Left: No aneurysm, occlusion or significant stenosis. Anterior Cerebral Arteries: Right: No aneurysm, occlusion or significant stenosis. Left: No aneurysm, occlusion or significant stenosis. Posterior cerebral Arteries: Right: No aneurysm, occlusion or significant stenosis. Left: No aneurysm, occlusion or significant stenosis. Vertebral Arteries: Right: No aneurysm, occlusion or significant stenosis. Left: No aneurysm, occlusion or significant stenosis. Basilar Artery: No aneurysm, occlusion or significant stenosis. CTA Neck W: No significant atherosclerotic changes Visualized aorta: Unremarkable. Visualized pulmonary arteries: Unremarkable. Subclavian arteries: Unremarkable. Common Carotid: Right: No dissection, occlusion or significant stenosis. Left: No dissection, occlusion or significant stenosis. External Carotid: Right: No dissection, occlusion or significant stenosis. Left: No dissection, occlusion or significant stenosis. Internal Carotid: Right: No dissection, occlusion or significant stenosis. Left: No dissection, occlusion or significant stenosis. Vertebral Artery: Right: No dissection, occlusion or significant stenosis. Left: No dissection, occlusion or significant stenosis. Lung Apices: No acute findings. Bones: No acute abnormality. Soft Tissues: Normal. IMPRESSION: 1. CTA brain: Normal CTA examination of the [place]. 2. Head CT: No acute abnormality. 3. CTA neck: No evidence of occlusion, significant stenosis or dissection. No significant atherosclerotic changes. Lab Data Lab results reviewed: Yes I reviewed the patient's lab results. Labs: 05/24/25 17:30 Urine - Reflex from Ua Urine Culture - Pending Laboratory Tests Range/Units 05/24/25 05/24/25 17:30 17:40 WBC (4.4-10.8) 10^3/uL 9.58 RBC (3.93-5.22) 10^6/uL 4.96 Hgb (11.2-15.7) g/dL 14.6 Hct (36.0-46.0) % 45.6 MCV (80-95) fL 92 MCH (27.0-33.0) pg 29.4 MCHC (32.0-36.0) % 32.0 RDW (11.7-14.6) % 16.0 H Plt Count (130-400) 10^3/uL 358 MPV (8.0-11.0) fL 9.5 Immature Gran % % 0.4 Neutrophils % % 61.3 Lymphocytes % % 27.8 Monocytes % % 8.5 Eosinophils % % 1.5 Basophils % % 0.5 Nucleated RBC % (0.0-0.3) % 0.0 Absolute Neutrophils (1.2-6.7) 10^3/uL 5.88 Absolute Lymphocytes (1.2-3.4) 10^3/uL 2.66 Absolute Monocytes (0.1-0.8) 10^3/uL 0.81 H Absolute Eosinophils (0.0-0.7) 10^3/uL 0.14 Absolute Basophils (0.0-0.2) 10^3/uL 0.05 VBG Lactate (<or=2.0) mmol/L 3.0 H* Sodium (136-145) mmol/L 140 Potassium (3.5-5.1) mmol/L 3.7 Chloride (98-107) mmol/L 103 Carbon Dioxide (21.0-32.0) mmol/L 24.8 Anion Gap (3-11) mmol/L 12.2 H BUN (7-18) mg/dL 21 H Creatinine (0.55-1.02) mg/dL 1.2 H Est GFR (CKD-EPI 2020) (mL/min/1.73m2) 55.15 Glucose (74-106) mg/dL 89 Calcium (8.5-10.1) mg/dL 9.0 Magnesium (1.8-2.4) mg/dL 2.1 Total Bilirubin (0.2-1.0) mg/dL 0.2 AST (15-37) U/L 49 H ALT (14-59) U/L 88 H Alkaline Phosphatase (46-116) U/L 184 H Total Protein (6.4-8.2) g/dL 9.1 H Albumin (3.4-5.0) g/dL 3.9 Lipase (<78) U/L 16 TSH (0.36-3.74) uIU/mL 2.81 Urine Color (Yellow) Red Urine Clarity (Clear) Sl Cloudy Urine pH (5-8) 5.5 Ur Specific [place] (1.005-1.025) 1.025 Urine Protein (Neg-Trace) mg/dL >=300 H Urine Ketones (Negative) mg/dL 15 H Urine Blood (Negative) Large H Urine Nitrite (Negative) Positive H Urine Bilirubin (Negative) Small H Urine Urobilinogen (Up to 0.2) mg/dL 1.0 H Ur Leukocyte Esterase (Negative) Negative Urine RBC (0-2) HPF >50 H Urine WBC Not Applicable Ur Epithelial Cells Not Applicable Urine Crystals Not Applicable Urine Bacteria Not Applicable Urine Mucus Not Applicable Ur Culture Indicated? Yes Urine Glucose (Negative) mg/dL Negative PFSH All Active Problems (Updated 05/24/25 @ 19:[address]) Dehydration (Acute) Urinary tract infection (Acute) Encounter for injection education (Acute) Arthritis of left ankle (Acute) Internal derangement of right knee (Acute) ADHD (Acute) Anxiety disorder (Acute) Binge eating disorder (Acute) Hypertensive disorder (Chronic) Fibromyalgia (Acute) GERD (gastroesophageal reflux disease) (Chronic) Carpal tunnel syndrome on left (Acute) Depression, major (Chronic) Asthma (Chronic) Obesity (Chronic) Obstructive sleep apnea (adult) (pediatric) (Acute) Osteoarthritis (Chronic) Chronic pain (Chronic) Prediabetes (Acute) Restless legs syndrome (Acute) Seasonal allergies (Acute) Tension headache (Acute) Vitamin D deficiency (Acute) Chronic foot pain (Acute) Dental caries (Acute) Hyperlipidemia (Acute) Unresolved grief (Acute) Hypothyroid (Chronic) Insomnia (Acute) Congenital pes planus (Acute) Plantar fasciitis, bilateral (Acute) Fatigue (Acute) Elevated sedimentation rate (Acute) Elevated C-reactive protein (Acute) Decreased hearing (Acute) Rash (Acute) Rectal bleeding (Acute) Corneal abrasion (Acute) Paresthesia of foot (Acute) Knee pain (Acute) Ear pain (Acute) Chronic cough (Acute) Dyspnea (Acute) COVID-19 (Acute) Tear of medial meniscus of left knee (Acute) Social History (Updated 09/26/22 @ 13:53 by Kacey Herrera) Smoking/Tobacco Use Status: Never Smoking risk assessment performed?: Yes Alcohol Intake: never Drug use: Never Substance use type: does not use Housing: house Current gender identity: female Do you feel safe at home: Yes Do you feel safe in your relationship?: Yes
[2025-05-24 17:44] LABS: Abs Immature Grans 0.04 10^3/uL (0.0-0.06); HCT 45.6 % (36.0-46.0); HGB 14.6 g/dL (11.2-15.7); Immature Grans % 0.4 %; MCH 29.4 pg (27.0-33.0); MCHC 32.0 % (32.0-36.0); MCV 92 fL (80-95); MPV 9.5 fL (8.0-11.0); Platelet Count 358 10^3/uL (130-400); RBC 4.96 10^6/uL (3.93-5.22); RDW 16.0 % (11.7-14.6); RDW-SD 54.5 fL; WBC 9.58 10^3/uL (4.4-10.8)
[2025-05-24 17:48] LABS: Glucose Negative (Negative)
[2025-05-24 17:49] LABS: RBC >50 HPF (0-2)
[2025-05-24 17:50] LABS: C & S Indicated? Yes
[2025-05-24] MEDS: Normal Saline - Diluent 50 ML VIAL IJ (17:59)
[2025-05-24] MEDS: Normal Saline Flush 10 ML SYR IVP (17:59)
[2025-05-24] MEDS: Omnipaque 350 MG/ML 100 ML BTL IJ (18:00)
[2025-05-24 18:08] LABS: ALT 88 U/L (14-59); AST 49 U/L (15-37); Albumin 3.9 g/dL (3.4-5.0); Alkaline Phosphatase 184 U/L (46-116); Anion Gap 12.2 mmol/L (3-11); BUN 21 mg/dL (7-18); Bilirubin, Total 0.2 mg/dL (0.2-1.0); CO2 24.8 mmol/L (21.0-32.0); Calcium 9.0 mg/dL (8.5-10.1); Chloride 103 mmol/L (98-107); Estimated GFR 55.15 (mL/min/1.73m2); Glucose 89 mg/dL (74-106); Lipase 16 U/L (<78); Magnesium 2.1 mg/dL (1.8-2.4); Potassium 3.7 mmol/L (3.5-5.1); Sodium 140 mmol/L (136-145); TSH (W/Ref FT4) 2.81 uIU/mL (0.36-3.74); Total Protein 9.1 g/dL (6.4-8.2)
[2025-05-24] MEDS: Normal Saline 500 ML 1000 ML IV (19:08)
[2025-05-24 20:16] VITALS: BP 158/72; PULSE 78; RESP 18; O2SAT 98
== END 2025-05-24 20:17 | disposition home or self-care (01) ==
PROVIDERS: Emergency Provider Physician Assistant; PCP Family Medicine
DX: N39.0 Urinary tract infection, site not specified (principal); E86.0 Dehydration; I10 Essential (primary) hypertension; R73.03 Prediabetes; Z79.84 Long term (current) use of oral hypoglycemic drugs
CPT/HCPCS: 70496; 70498; 80053; 83690; 99285; 81003; 81015; 83605; 83735; 84443; 85025; 87086; J3490